=== PATIENT | female | born 1940 | race Caucasian/White ===

== ENCOUNTER → 2020-07-11 14:55 | Outpatient (CLI) | payer MEDICARE, SELFPAY ==
--- NOTE | ~2020-07-11 | MM_ITS ---
EXAMINATION: MM screening jj BI w ruma HISTORY: Screening mammogram TECHNIQUE: Craniocaudal and mediolateral oblique 3-D tomosynthesis images were obtained and synthetic 2-D images were generated. CAD analysis was submitted and interpreted. COMPARISON: 06/01/2019, 05/18/2018 bilateral digital screening mammogram examinations BREAST PARENCHYMAL COMPOSITION: There are scattered areas of fibroglandular density. FINDINGS: There is no evidence of suspicious mass, calcification, or architectural distortion to sugg est malignancy in either breast. There has been no suspicious interval change. IMPRESSION: 1. No mammographic evidence of malignancy. 2. Recommend routine screening mammography in one year. BI-RADS Category 1: Negative Reviewed, dictated and finalized at location A. AL WARDEN
== END ==
PROVIDERS: Visit Provider Family Medicine
DX: Z12.31 Encounter for screening mammogram for malignant neoplasm of breast (principal)
CPT/HCPCS: 77063; 77067

== ENCOUNTER 2020-11-20 10:42 | Outpatient (CLI) | payer MEDICARE, SELFPAY ==
--- NOTE | ~2020-11-20 | XR_ITS ---
EXAMINATION: XR knee RT 3V DATE: 11/20/2020 11:12 INDICATION: Right knee pain. TECHNIQUE: 3 views of right knee were obtained. COMPARISON: Right knee radiographs 02/02/2016 FINDINGS: There is varus angulation at the knee. No fracture. There is severe osteoarthritis of media l compartment, mild osteoarthritis of lateral compartment, and moderate osteoarthritis of patellofemo ral compartment. No knee joint effusion. IMPRESSION: 1. Severe right knee osteoarthritis. Reviewed, dictated and finalized at location A.
== END 2020-11-20 10:43 | disposition home or self-care (01) ==
PROVIDERS: PCP Family Medicine; Visit Provider Family Medicine
DX: M25.561 Pain in right knee (principal); M17.11 Unilateral primary osteoarthritis, right knee
CPT/HCPCS: 73562

== ENCOUNTER → 2021-09-07 13:28 | Outpatient (CLI) | payer MEDICARE, SELFPAY ==
--- NOTE | ~2021-09-07 | MM_ITS ---
EXAMINATION: MM screening [facility] BI w ruma HISTORY: Screening TECHNIQUE: Craniocaudal and mediolateral oblique 3-D tomosynthesis images were obtained and synthetic 2-D images were generated. CAD analysis was submitted and interpreted. COMPARISON: Comparison to multiple prior studies sequentially, with oldest reviewed study dated 07/2018. BREAST PARENCHYMAL COMPOSITION: Breast composed of scattered areas of fibroglandular density FINDINGS: There is no evidence of suspicious mass, calcification, or architectural distortion to sugg est malignancy in either breast. There has been no suspicious interval change. IMPRESSION: 1. No mammographic evidence of malignancy. 2. Recommend routine screening mammography in one year. BI-RADS Category 1: Negative Reviewed, dictated and finalized at location A.
== END ==
PROVIDERS: PCP Family Medicine; Visit Provider Family Medicine
DX: Z12.31 Encounter for screening mammogram for malignant neoplasm of breast (principal)
CPT/HCPCS: 77063; 77067

== ENCOUNTER → 2021-10-02 13:05 | Outpatient (CLI) | payer MEDICARE, SELFPAY ==
--- NOTE | ~2021-10-02 | DEXA_ITS ---
Bone Density Report Name: MURALI MAYFIELD Age: 81 Sex: Female Ethnicity: White Date of : 1940 Indication: osteopenia; parental hip fracture; height loss; postmenopausal Referring Provider: ASTER LUIS Study: Bone densitometry was performed. Exam Date: October 02, 2021 Accession number: [id number] Bone Density: Region BMD T-score Z-score Classification AP Spine (L3, L4) 0.897 -1.9 1.0 Osteopenia Femoral Neck (Right) 0.803 -0.4 1.9 Normal Total Hip (Right) 0.850 -0.8 1.3 Normal World Health Organization criteria for BMD impression classify patients as: Normal (T-score at or above -1.0), Osteopenia (T-score between -1.0 and -2.5), or Osteoporosis (T-score at or below -2.5). 10-year Fracture Risk(1): Major Osteoporotic Fracture 14% Hip Fracture 5.5% Reported Risk Factors: [place] (), Neck BMD=0.803, BMI=37.3, parental fracture (1) FRAX(R) Version 3.08. Fracture probability calculated for an untreated patient. Fracture probability may be lower if the patient has received treatment. Previous Exams: Region Exam Age BMD T-score BMD Change BMD Change Date g/cm2 vs Baseline vs Previous AP Spine(L3, L4) 10/02/2021 81 0.897 -1.9 -0.068 -0.051* 06/01/2019 79 0.948 -1.4 -0.017 0.046* 12/25/2008 68 0.903 -1.8 -0.062 -0.062 12/27/2002 62 0.965 -1.2 Total Hip(Right) 10/02/2021 81 0.850 -0.8 -0.184 0.002 06/01/2019 79 0.849 -0.8 -0.185 -0.104* 12/25/2008 68 0.953 0.1 -0.081 -0.081 12/27/2002 62 1.034 0.8 *Denotes significance at 95% confidence level, LSC for AP Spine = 0.022 g/cm2, LSC for Total Hip = 0.027 g/cm2 Clinical Information Provided by Patient: Parent has had a hip fracture Has used the following medications: Vitamin D, Calcium, MTV Patient maximum height was 62.5 Menopause Age: 52 Drinks caffeinated beverages Onset of menses at age 12 Number of children 2 Impression: The patient has low bone mass, based on the Total Spine T-score. The patient has an estimated ten-year risk of hip fracture of 5.5% and an estimated ten-year risk of major fracture of 14%, based on the WHO FRAX algorithm. The patient has risk factors, including: parental hip fracture. The BMD for the AP Spine(L3, L4) decreased, changing by -0.051 since the last DXA exam. Discussion: BONE DENSITY IS LOW AT ONE OR MORE SKELETAL SITES. THE PATIENT'S BMD AND CLINICAL RISK FACTORS CONTRIBUTE TO THIS PA
== END ==
PROVIDERS: PCP Family Medicine; Visit Provider Family Medicine
DX: Z78.0 Asymptomatic menopausal state (principal); M85.88 Other specified disorders of bone density and structure, other site
CPT/HCPCS: 77080

== ENCOUNTER 2022-01-07 09:14 | Outpatient (CLI) | payer MEDICARE, SELFPAY ==
--- NOTE | ~2022-01-07 | NM_ITS ---
EXAMINATION: NM josr stress w perfusion DATE: 01/07/2022 11:29 INDICATION: Encounter for preprocedural cardiovascular evaluation. TECHNIQUE: Rest images were obtained following intravenous administration of 9.7 mCi Tc99m tetrofosmi n (Myoview). The patient was infused intravenously with Lexiscan (Regadenoson). Then, 31.7 mCi Tc99m tetrofosmin (Myoview) was administered intravenously, and stress images were obtained initially in newell pine position and subsequently in prone position. Data was reconstructed into short axis and horizont al and vertical long axis SPECT images. Gated SPECT images were also obtained. COMPARISON: None. FINDINGS: Likely breast attenuation artifact along portions of the anteroseptal, anterior and anterol ateral wall which normalizes with prone imaging. No definite reversible or fixed perfusion abnormalit y to suggest ischemia or infarction. There is normal left ventricular chamber size, wall motion and e jection fraction. Left ventricular ejection fraction measures >70%. IMPRESSION: 1. Normal myocardial perfusion at rest and during stress. 2. Left ventricular ejection fraction measuring >70%. Reviewed, dictated and finalized at location A.
--- NOTE | 2022-01-07 09:17 | EST_ITS ---
Patient Info Name: Emily Mitchell Age: 81 years : 1940 Gender: Female Ht: 61 in Wt: 195 lbs BSA: 2.00 m2 HR: 58 bpm BP: 136 / 78 mmHg Heart Rhythm: Sinus Rhythm Exam Date: 01/07/2022 10:18 AM Exam Location: [facility] Stress Patient Status: Outpatient Admit Date: 01/07/2022 Staff Ordering Physician: Aidan Duran DO Attending Provider: Aidan Duran DO Exercise Technologist: Miriam Evans CT Exercise Physician: Aidan Duran DO Exam Type: CA stress josr w NM Study Info Indications R07.89 - Other chest pain Z01.810 - Encounter for preprocedural cardiovascular examination A regadenoson stress test was performed. Summary 1. 1. Negative lexiscan stress test for ischemic ST changes by ECG criteria. 2. 2. Stable hemodynamics throughout the test. 3. 3. Nuclear scan to follow and will be reported separately. Please correlate with it. 4. 4. Patient informed of the above results. Protocol: Lexiscan Stress ECG Details Stage: REST Duration (min): 0 min : 53 sec HR (bpm): 57 SBP (mmHg): 136 DBP (mmHg): 78 Stage: REST Duration (min): 10 min : 47 sec HR (bpm): 56 SBP (mmHg): 136 DBP (mmHg): 78 Stage: STAGE 1 Duration (min): 1 min : 0 sec HR (bpm): 75 SBP (mmHg): 155 DBP (mmHg): 81 Stage: RECOVERY Duration (min): 1 min : 0 sec HR (bpm): 89 SBP (mmHg): 155 DBP (mmHg): 81 Stage: RECOVERY Duration (min): 2 min : 0 sec HR (bpm): 82 SBP (mmHg): 155 DBP (mmHg): 81 Stage: RECOVERY Duration (min): 3 min : 0 sec HR (bpm): 77 SBP (mmHg): 155 DBP (mmHg): 81 Stage: RECOVERY Duration (min): 3 min : 38 sec HR (bpm): 75 SBP (mmHg): 141 DBP (mmHg): 76 Rest HR: 56 bpm Peak HR: 92 bpm Rest Sys BP: 136 mmHg Peak Sys BP: 155 mmHg Max Pred HR: 141 bpm % Max Pred HR: 65 % Target HR: 120 bpm Max RPP: 14,260 bpm*mmHg Termination Reason: Completed protocol Cardiac Symptoms: Shortness of breath Total Time: 1 min : 0 sec Rest Bingham BP: 78 mmHg Peak Bingham BP: 81 mmHg Total Dose: 0.4 mg Resting ECG Sinus rhythm. Stress ECG No ST changes. Arrhythmias None. Report Signatures
== END 2022-01-07 09:15 | disposition home or self-care (01) ==
PROVIDERS: PCP Family Medicine; Visit Provider Internal Medicine Cardiovascular Disease
DX: Z01.810 Encounter for preprocedural cardiovascular examination (principal)
CPT/HCPCS: 78452; 93017; A9502; J2785

== ENCOUNTER 2022-01-20 09:16 | Outpatient (CLI) | payer MEDICARE, SELFPAY ==
--- NOTE | 2022-01-20 | ECG_ITS ---
Measurements Intervals Hughes Rate: 60 P: 51 MT: 204 QRS: -20 QRSD: 93 T: 10 QT: 408 QTc: 409 Interpretive Statements SINUS RHYTHM VENTRICULAR PREMATURE COMPLEX BORDERLINE AV CONDUCTION DELAY LOW QRS VOLTAGE IN PRECORDIAL LEADS CONSIDER INFERIOR INFARCT, AGE INDETERMINATE BASELINE WANDER- I, II, AVR, AVL ABNORMAL ECG NO PREVIOUS ECG AVAILABLE FOR COMPARISON Electronically Signed On 01-20-2022 12:40:10 CDT by Aidan Duran D.O.
[2022-01-20 10:08] LABS: Hematocrit 45.8 % (37.0-47.0); Hemoglobin 14.7 g/dL (12.0-15.0)
[2022-01-20 10:18] LABS: Estimated Glomerular Filt Rate > 60; Glucose 97 mg/dL (65-110)
[2022-01-20 10:22] LABS: Hemoglobin A1C 6.2 % (<5.7)
[2022-01-20 10:25] LABS: Urine Cotinine NEGATIVE
== END 2022-01-20 09:17 | disposition home or self-care (01) ==
PROVIDERS: PCP Family Medicine; Visit Provider Orthopaedic Surgery
DX: Z01.818 Encounter for other preprocedural examination (principal); E03.9 Hypothyroidism, unspecified; I11.0 Hypertensive heart disease with heart failure; E78.5 Hyperlipidemia, unspecified; I47.1 Supraventricular tachycardia; G47.33 Obstructive sleep apnea (adult) (pediatric); M17.12 Unilateral primary osteoarthritis, left knee; I49.3 Ventricular premature depolarization; I49.49 Other premature depolarization; Z51.81 Encounter for therapeutic drug level monitoring; Z79.899 Other long term (current) drug therapy
CPT/HCPCS: 80307; 82040; 82565; 82947; 83036; 85014; 85018; 93005

== ENCOUNTER 2022-02-22 11:44 | Outpatient (CLI) | payer MEDICARE, SELFPAY ==
[2022-02-22 14:06] LABS: Basophils Absolute Auto 0.1 K/mm3 (0.0-0.1); Basophils Percent Auto 0.8 % (0.2-1.2); Eosinophils Absolute Auto 0.2 K/mm3 (0-0.3); Hematocrit 45.3 % (37.0-47.0); Hemoglobin 15.2 g/dL (12.0-15.0); Immature Granulocyte Absolute 0.04 K/mm3 (0.00-0.031); Immature Granulocyte Percent A 0.5 % (0-0.5); Lymphocytes Absolute Auto 2.42 K/mm3 (0.9-3.2); Lymphocytes Percent Auto 30.9 % (18.3-44.2); Mean Corpuscular HGB Conc 33.6 g/dl (32-36); Mean Corpuscular Hemoglobin 30.9 pg (26-34); Mean Corpuscular Volume 92.1 fl (80-100); Mean Platelet Volume 9.3 fl (7.4-10.4); Monocytes Absolute Auto 0.7 K/mm3 (0.1-0.6); Monocytes Percent Auto 8.9 % (2.6-8.5); Neutrophils Absolute Auto 4.5 K/mm3 (1.3-6.7); Neutrophils Percent Auto 56.9 % (45.5-73.1); Platelet Count Result 325 k/mm3 (150-375); Red Blood Count 4.92 M/mm3 (4.2-5.4); Red Cell Distribution Width 12.9 % (11.5-14.5); White Blood Count 7.8 K/mm3 (4.5-10.0)
[2022-02-22 14:14] LABS: Anion Gap 11 mmol/L (8-16); Blood Urea Nitrogen 13 mg/dL (7-17); Calcium 9.9 mg/dL (8.4-10.2); Carbon Dioxide 29 mmol/L (22-30); Chloride 98 mmol/L (98-107); Estimated Glomerular Filt Rate > 60; Glucose 102 mg/dL (65-110); Potassium 4.5 mmol/L (3.4-5.0); Sodium 138 mmol/L (137-145)
[2022-02-22 14:32] LABS: Urine Cotinine NEGATIVE
== END 2022-02-22 11:45 | disposition home or self-care (01) ==
LOC: ANHSURGERY 11:50
PROVIDERS: Anesthesiology; PCP Family Medicine; Visit Provider Orthopaedic Surgery
DX: Z01.812 Encounter for preprocedural laboratory examination (principal); M17.11 Unilateral primary osteoarthritis, right knee; Z51.81 Encounter for therapeutic drug level monitoring; Z79.899 Other long term (current) drug therapy
CPT/HCPCS: 36415; 80048; 80307; 85025; 87081

== ENCOUNTER 2022-03-23 01:03 | Day surgery (SDC) | payer MEDICARE, SELFPAY ==
--- NOTE | 2022-02-22 11:52 | PC.NURSE ---
PRE-OP INSTRUCTIONS, PLEASE READ CAREFULLY Report to the Outpatient Waiting Room, entrance under the green pavilion located off [facility], at time _0630_ on date _03/23/22_. OR Time: _0830_. PACK A SMALL OVERNIGHT BAG AND LEAVE IN THE CAR ALONG WITH YOUR WALKER Time changes happen often and if your time is changed the preop area will call you the afternoon before. - You and your visitor will be asked to self-screen and do not enter if you have any COVID symptoms. - We encourage only one visitor and NO visitors under age 16 are allowed at this time. Your visitor will receive communication by the phone number that is given day of service. VISITING HOURS 8AM-8PM - The patient visitor is requested to social distance or may leave the building when not with patient due to restrictions. - A mask is required within the hospital. Patients may have clear liquids (water, carbonated beverages, clear teas, apple juice) until 3 hours prior to surgery (0530 AM) with a maximum of 20 ounces. - No food from midnight until time of surgery Take the following medications with a SIP of water the morning of surgery: _AMLODIPINE, LEVOTHYROXINE, METOPROLOL, TYLENOL IF NEEDED_ Medications to discontinue per ANESTHESIA - _MULTIVITAMIN 3 DAYS PRIOR TO SURGERY, Date to take last dose 03/19/22_ Please no make-up, nail frisian, hairspray, perfume, deodorant, or body powder the day of surgery. No jewelry (including any body piercings) or valuables the day of surgery, leave them at home. Please take a shower or bath the night before, or the morning of, surgery with an antibacterial soap. Wear comfortable, loose fitting clothing. Children are encouraged to wear pajamas. - Jewelry must be removed prior to entering the operating room. Rings and piercings that are not removed may be cut off. - The hospital will not accept responsibility for valuables. - Please leave all valuables, including medications, at home the day of surgery. If you are going home after surgery, a licensed explosives truck driver must drive you home. - NO public transportation without another adult. - We recommend that an adult stay with you for 24 hours following discharge. - We also recommend that you do not drive, make important decision, drink alcoholic beverages, or take any drugs that were not prescribed by your health care provider for at least 24 hours after your discharge time. Follow any additional instructions given to you from your surgeon. TOTAL JOINT CLASS 03/03/22 @ 1000 AM, [facility] If you or anyone in your household have experienced Covid symptoms in the past week, please notify your surgeon or the nurse liaison at the phone number below for possible testing. Telephone instructions given to ___PT and asked if any additional questions and then verbalized understanding. Patient advised to call surgeon office or pre surgery nurse liaison [phone] if any additional questions.
[2022-02-22 12:13] VITALS: BP 142/78; PULSE 72; RESP 18; TEMP 37.2; O2SAT 94; BMI 35.9
[2022-03-23] VITALS (20 sets, daily range): BP systolic 113–154; BP diastolic 61–96; PULSE 64–89; RESP 10–20; TEMP 36.2–37.3; O2SAT 90–97
--- NOTE | ~2022-03-23 | XR_ITS ---
EXAMINATION: XR knee RT 2V DATE: 03/23/2022 10:42 INDICATION: Right knee arthroscopy. Postop. TECHNIQUE: 2 views of right knee were obtained. COMPARISON: Right knee radiographs 02/22/2022 FINDINGS: There is a total right knee arthroplasty without patellar resurfacing in near-anatomic alig nment. There has been resection of patellar osteophytes. No fracture. There is gas in the knee joint and soft tissues, consistent with recent surgery. IMPRESSION: 1. Total right knee arthroplasty in near-anatomic alignment. Reviewed, dictated and finalized at location A. [place] [employer] DEVELOPER
[2022-03-23] MEDS: LACTATED RINGERS 1,000 ML 30 ML IV CONT ×2 (07:15→10:16)
--- NOTE | 2022-03-23 07:30 | WPDHPUPDATE1 ---
History and Physical Update Update Date/Time: 03/23/22 07:30 History and Physical has been reviewed, including an updated exam of the patient. There are NO changes in the patient's condition. Risks, benefits, and alternatives have been discussed and questions answered. Patient agrees to proceed with procedure.
--- NOTE | 2022-03-23 07:51 | WPDANESEPPF ---
Anes - Initial Pre Proc Eval Procedure: Operation Date: 03/23/22 08:30 Proposed Procedures p Right Total Knee Arthroplasty - Pola Soriano MD Date/Time: 03/23/22 07:51 Surgeon: Pola Soriano MD Pre Op Diagnosis: primary oa right knee Patient Data Age: 82 Gender: F Height: 1.56 m Weight: 88.3 kg Last Vital Signs Temp 36.2 C L 03/23/22 07:21 Pulse 64 03/23/22 07:21 Resp 16 03/23/22 07:21 BP 154/77 H 03/23/22 07:21 Pulse Ox 97 03/23/22 07:21 O2 Del Method Room Air 03/23/22 07:21 Allergies Allergy/AdvReac Type Severity Reaction Status Date / Time isosorbide Allergy Unknown CLAUSTROPHOBIC Verified 03/23/22 06:51 FEELING Home Medications Medication Instructions Recorded Confirmed Type calcium carbonate 500 mg calcium 500 mg PO DAILY #30 tabs 03/19/19 03/23/22 Rx (1,250 mg) tablet multivitamin (Daily Multi-Vitamin 1 tablet PO DAILY 03/18/21 03/23/22 History tablet) magnesium oxide 400 mg (241.3 mg See Rx Instructions .Route 04/22/21 03/23/22 Rx magnesium) tablet .COMPLEX #30 tabs rosuvastatin 5 mg tablet See Rx Instructions .Route 07/16/21 03/23/22 Rx .COMPLEX #90 tabs acetaminophen 650 mg 500 mg PO Q8H PRN PAIN 10/22/21 03/23/22 History tablet,extended release valsartan 160 See Rx Instructions .Route 12/28/21 03/23/22 Rx mg-hydrochlorothiazide 12.5 mg .COMPLEX #30 tabs tablet potassium chloride 10 mEq See Rx Instructions .Route 01/25/22 03/23/22 Rx capsule,extended release .COMPLEX #90 caps amlodipine 10 mg tablet See Rx Instructions .Route 01/26/22 03/23/22 Rx .COMPLEX #90 tabs omeprazole 20 mg capsule,delayed See Rx Instructions .Route 02/11/22 03/23/22 Rx release .COMPLEX #100 caps ascorbic acid (vitamin C) 500 mg 500 mg PO DAILY 02/22/22 03/23/22 History tablet (Vitamin C) levothyroxine 100 mcg tablet See Rx Instructions .Route 03/08/22 03/23/22 Rx .COMPLEX #90 tabs metoprolol tartrate 50 mg tablet 50 mg PO BID #180 tabs 03/16/22 03/23/22 Rx Patient hx anesthesia problems: none Family hx anesthesia problems: none Results Review: All pre-operative results and documents have been reviewed as part of the pre-operative evaluation. [facility] Past Medical History Medical History BMI 36.0-36.9,adult Degenerative joint disease involving multiple joints Essential hypertension Hypothyroidism Mixed hyperlipidemia NILAM on CPAP Surgical History Surgical History History of hip replacement (~2012) Family History Family History Mother Hypertension Family history of Alzheimer's disease Father Carcinoma of colon, Onset Age: 75 Family history of cardiovascular disease Social History Social History Social History: Smoking status: Never smoker Second hand tobacco smoke exposure: No Additional smoking assessment comments: PT DENIES ALL FORMS OF TOBACCO USE Alcohol intake: never Substance use: never Substance use type: does not use Living arrangements: with family Gender identity (if verbalized by the patient): Female Sexual Orientation (if Verbalized by the Patient): Straight or Heterosexual Spiritual care concerns: No Anes - Eval Final PreProcedure Day of Procedure 03/23/22 07:51 Patient weight: obese Heart: regular rate and rhythm Lungs: clear to auscultation Airway: Mallampati scale class II Neurological: alert and oriented Last oral intake: >/= 8 hours ASA classification: III Emergent: no Anesthetic plan: proceed Anesthesia type and monitoring: general LMA and standard monitoring Results Review: All pre-operative results and documents have been reviewed as part of the pre-operative evaluation. Informed Consent: The patient's anesthetic plan and its
[2022-03-23] MEDS: TRANEXAMIC ACID 1,000MG/ISO100 1,000 MG/100 ML BAG 200 MG IVPB (08:09)
[2022-03-23] MEDS: ACETAMINOPHEN 500 MG TABLET 1000 MG PO (08:09)
--- NOTE | 2022-03-23 08:10 | WPDANESPNB ---
Anes - Peripheral Nerve Block Date/Time: 03/23/22 08:10 I have discussed with the patient/family/POA the placement of a peripheral nerve block for post-operative pain management, including associated risks, benefits, complications, and side effects. Alternative methods of post-operative analgesia were detailed. Questions were solicited and answers provided to the satisfaction of the patient/family/POA. Time-Out: A pre-procedural Time-Out was completed immediately before starting the procedure and confirmed: Patient Identification, Site, Procedure, Patient Position and the Availability of Requisite Equipment. Clinical Indications: Acute post-operative pain management requested by the operative surgeon. Nerve Block Insertion Note Anes-nerve block: adductor canal right Patient position: supine Skin prep: chlorhexidine Needle: 22 gauge, stimulating, insulated echogenic needle. Needle length: 80 mm Technique: ultrasound Technique comment: mid 1mg [id number] Injectate: bupivacaine 0.5% with epi 5 mcg/ml (30ml no epi) and dexamethasone (mg) (4) Observations: tolerated well Complications: none Procedure start time:: 799 Procedure end time:: 806
[2022-03-23] MEDS: ceFAZolin 2 GM/D5W 50 ML 2 GM/50 ML BAG IVPB ×3 (08:27→23:14)
[2022-03-23] MEDS: GENTAMICIN BONE CEMENT REFOBACIN 1 EACH TOPICAL (09:22)
--- NOTE | 2022-03-23 10:31 | W.PM.PROC2 ---
Procedure Note - Detailed Date of Procedure 03/23/22 Pre-op Diagnosis primary oa right knee Post-op Diagnosis Same Procedure Performed Total knee arthroplasty, right. Surgeon Pola Soriano MD Emergency Specialist Aurelia Chew PA-C Anesthesia General and Regional (subsartorial block) Findings Satisfactory bone quality. Standard bone resections. Good PCL function. Description of Procedure The patient was given a nerve block preoperatively, and then brought to the operating room. A general anesthetic was administered. The leg was prepped and draped in the usual sterile fashion. The limb was elevated and the tourniquet inflated to 300 mmHg. A longitudinal incision was created along the medial border of the patella and patellar tendon, and a trivector approach to the knee was performed. A mild medial release was taken. The knee was then flexed. The osteophytes were carefully removed. The intramedullary guide was placed in the femoral canal. The distal femoral resection was then taken with the oscillating saw. The collateral ligaments were carefully protected. The tibia was carefully exposed. The jig was applied, and the proximal tibia was resected according to preoperative plan. The knee was balanced in extension. Appropriate releases were taken where needed. The anterior cruciate ligament and meniscal remnants were removed. The posterior cruciate ligament was preserved. The patella was measured. Patellar resection was carried out with the oscillating saw. The lug holes drilled. The femur was sized and rotation assessed using a combination of gap balancing, posterior referencing, and the AP axis. The 4 in 1 cutting block was used to finish the femoral cuts after equal gaps were assured. The lug holes were drilled. The osteophytes were carefully removed from the back of the knee. The knee was copiously irrigated with antibiotic solution periodically throughout the procedure. The meniscal remnants were removed. The spacer block was used to confirm equal flexion and extension gaps. Further releases were performed as needed. The tibia was sized and broached. The bony surfaces were prepared for cementing with pulsatile lavage. The real tibial component was cemented into position followed by press fitting the femoral component. Excess cement was carefully removed. The patella component was press-fit. Patellar tracking was carefully assessed. No additional releases were required. The wound was closed with #1 Vycril suture, #2 Quill suture, 0-Quill suture, and 2-0 Quill suture followed by Steri-Strips. A sterile bulky dressing was applied. Meticulous hemostasis was maintained throughout the procedure. There were no complications. The patient was extubated and brought to the recovery room in stable condition after the application of sterile dressing with Boogie bandage. Implants Sb Triathlon knee system, low profile cemented tibia size 3, press fit cruciate retaining femoral component size 3 ,and an 11 mm cruciate retaining polyethylene insert. Estimated Blood Loss 50 Tourniquet Time 48 Drains No Pathology None sent Complications No immediate complications Condition Stable Disposition PACU [facility] Billing Surgery - Charge Forward: Surgery Billing
[2022-03-23] MEDS: fentaNYL CITRATE INJ (*CRX) 100 MCG/2 ML VIAL 25 MCG IV PUSH ×4 (10:39→11:45)
--- NOTE | 2022-03-23 12:55 | ADMGEN ---
This patient, Emily Mitchell, was admitted to 2 Medical Room 260-01. Patient/family oriented to hospital policies and general routines including ID bracelet, bed and alarms, visiting hours, pain management, procedures, bathroom and other care routines, personal items, smoking policy, room service/diet, and visiting hours. Information on how to activate the Rapid Response Team has been discussed. Patient/Family are encouraged to report perceived risks to care and to ask questions if they do not understand what they are told or what they should do.
[2022-03-23] MEDS: SODIUM CHLORIDE 0.9% IV 1,000 ML 125 ML IV CONT (13:30)
[2022-03-23] MEDS: ONDANSETRON INJ 4 MG/2 ML VIAL IV PUSH (13:41)
[2022-03-23] MEDS: ASPIRIN 81 MG ENTERIC TABLET PO (16:49)
[2022-03-23] MEDS: SENNA/DOCUSATE SODIUM TABLET 2 TAB PO (16:49)
[2022-03-23] MEDS: MELOXICAM 7.5 MG TABLET PO (16:50)
[2022-03-23] MEDS: METOPROLOL TARTRATE 50 MG TAB PO (21:02)
[2022-03-24 03:02] VITALS: PULSE 82; O2SAT 94
[2022-03-24 03:56] VITALS: BP 121/68; PULSE 65; RESP 18; TEMP 36.6; O2SAT 91
[2022-03-24 06:00] LABS: Anion Gap 13 mmol/L (8-16); Blood Urea Nitrogen 10 mg/dL (7-17); Calcium 8.5 mg/dL (8.4-10.2); Carbon Dioxide 24 mmol/L (22-30); Chloride 100 mmol/L (98-107); Estimated CRCL calculation 76 ml/min; Estimated Glomerular Filt Rate > 60; Glucose 122 mg/dL (65-110); Potassium 3.5 mmol/L (3.4-5.0); Sodium 137 mmol/L (137-145)
[2022-03-24 06:08] LABS: Basophils Percent Auto 0.1 % (0.2-1.2); Hematocrit 38.2 % (37.0-47.0); Hemoglobin 12.5 g/dL (12.0-15.0); Immature Granulocyte Absolute 0.09 K/mm3 (0.00-0.031); Immature Granulocyte Percent A 0.6 % (0-0.5); Lymphocytes Absolute Auto 1.28 K/mm3 (0.9-3.2); Lymphocytes Percent Auto 9.1 % (18.3-44.2); Mean Corpuscular HGB Conc 32.7 g/dl (32-36); Mean Corpuscular Volume 94.8 fl (80-100); Mean Platelet Volume 9.3 fl (7.4-10.4); Monocytes Absolute Auto 1.1 K/mm3 (0.1-0.6); Monocytes Percent Auto 7.8 % (2.6-8.5); Neutrophils Absolute Auto 11.6 K/mm3 (1.3-6.7); Neutrophils Percent Auto 82.4 % (45.5-73.1); Platelet Count Result 291 k/mm3 (150-375); Red Blood Count 4.03 M/mm3 (4.2-5.4); Red Cell Distribution Width 13.2 % (11.5-14.5); White Blood Count 14.1 K/mm3 (4.5-10.0)
[2022-03-24] MEDS: LEVOTHYROXINE SODIUM 100 MCG TABLET PO (06:15)
[2022-03-24 08:15] VITALS: O2SAT 90
[2022-03-24] MEDS: polyethylene glycoL 3350 17 GM POWD.PACK PO (08:39)
[2022-03-24] MEDS: ceFAZolin 2 GM/D5W 50 ML 2 GM/50 ML BAG IVPB (08:39)
[2022-03-24] MEDS: VALSARTAN 160 MG TABLET PO (08:40)
[2022-03-24] MEDS: amLODIPine BESYLATE 5 MG TABLET 10 MG PO (08:40)
[2022-03-24 08:41] VITALS: PULSE 72
[2022-03-24] MEDS: predniSONE 5 MG TABLET PO (08:41)
[2022-03-24] MEDS: METOPROLOL TARTRATE 50 MG TAB PO (08:41)
[2022-03-24] MEDS: PANTOPRAZOLE 40 MG TABLET PO (08:41)
[2022-03-24] MEDS: MELOXICAM 7.5 MG TABLET PO (08:43)
[2022-03-24] MEDS: hydroCHLOROthiazide 12.5 MG CAPSULE PO (08:43)
[2022-03-24] MEDS: oxyCODONE HCL (*CRX) 5 MG TAB IR PO (08:44)
[2022-03-24] MEDS: ROSUVASTATIN 5 MG TABLET PO (08:45)
[2022-03-24] MEDS: SENNA/DOCUSATE SODIUM TABLET 2 TAB PO (08:50)
[2022-03-24] MEDS: ASPIRIN 81 MG ENTERIC TABLET PO (09:26)
[2022-03-24 10:45] VITALS: BP 132/61; PULSE 68; RESP 16; TEMP 36.3; O2SAT 95
--- NOTE | 2022-03-24 11:55 | PM.DS ---
DS: Admitting Diagnosis Discharge Date 03/24/22 Admitting Diagnosis OA knee Right DS: Discharge Diagnosis Discharge Diagnosis (1) Status post total right knee replacement: Code(s): Z96.651 - Presence of right artificial knee joint Status: Acute Assessment and Plan: Postop day 1: Left total knee arthroplasty. Patient tolerated procedure well. No complications. Pain manageable with pain medication. No numbness or tingling. We had a lengthy discussion regarding postoperative wound care, limitations, expectations, and exercises. Patient shows good understanding. He has had initial physical therapy and is tolerating it well. DVT prophylaxis: 81 mg baby aspirin b.i.d. for 14 days. Pain medication: Percocet. Meloxicam. Prednisone. Patient has followup appointment with Dr. Soriano in 3 weeks. DS: Summary Hospital Course Reason for hospitalization: Total knee arthroplasty Hospital Course: Patient tolerated procedure well. Has had initial PT/OT. No complications. Pain well managed. Status at Discharge Functional status at discharge: uses cane/walker Overall status at discharge: patient is progressing back to baseline Time Spent with Patient Time attestation: Total time spent providing and/or coordinating discharge services: Exam Narrative: Overweight 82 y/o female. Resting comfortably in chair. No acute distress. A&O x3. Wearing compression socks bilaterally. Dressing intact with no drainage. Moderate swelling. Small area of ecchymosis. No erythema. No hematoma. Good early range of motion. Calf nontender. Neurologic status intact. No varicosities. Distal pulses palpable. DS: Data Data Completed and Pending Labs on day of discharge: Labs from last 24 hours 03/24/22 03/24/22 05:06 05:06 WBC 14.1 H RBC 4.03 L Hgb 12.5 Hct 38.2 MCV 94.8 MCH 31.0 MCHC 32.7 RDW 13.2 Plt Count 291 MPV 9.3 Immature Gran % (Auto) 0.6 H Neut % (Auto) 82.4 H Lymph % (Auto) 9.1 L [place] % (Auto) 7.8 Eos % (Auto) 0.0 Baso % (Auto) 0.1 L Lymph # (Auto) 1.28 [place] # (Auto) 1.1 H Eos # (Auto) 0.0 Baso # (Auto) 0.0 Abs Immat Gran (auto) 0.09 H Absolute Neuts (auto) 11.6 H Absolute Nucleated RBC 0.0 Nucleated RBC % 0.0 Sodium 137 Potassium 3.5 Chloride 100 Carbon Dioxide 24 Anion Gap 13 BUN 10 Creatinine 0.50 L Estim Creat Clear Calc 76 Estimated GFR > 60 Glucose 122 H Calcium 8.5 Discharge Plan Discharge Patient Disposition: Home, Self-Care Discharge Instructions: See green instruction sheets Stand Alone Forms: General Discharge Instructions Follow-up/Referrals: Aurelia Chew PA [Physician Biological Technical Officer] - Discharge Medications: New meloxicam 15 mg tablet 15 mg PO DAILY Qty: 30 0RF Rx Instructions: Cut in half. Take 1/2 in morning and 1/2 at night. Take with food. Stop if stomach upset. prednisone 5 mg tablet 5 mg PO DAILY 21 Days Qty: 21 0RF aspirin 81 mg tablet,delayed release (DR/EC) 81 mg PO BID 14 Days Qty: 28 0RF oxycodone-acetaminophen 5-325 mg tablet 1 - 2 tablet PO Q4-6H MDD 6 PRN (Reason: pain) Qty: 30 0RF Continued multivitamin [Daily Multi-Vitamin] Tablet 1 tablet PO DAILY Label Comments: AFTERNOON acetaminophen 650 mg tablet extended release 500 mg PO Q8H PRN (Reason: PAIN) Rx Instructions: Pt took 350 mg this AM calcium carbonate 500 mg calcium (1,250 mg) tablet 500 mg PO DAILY Qty: 30 0RF Label Comments: AFTERNOON rosuvastatin 5 mg tablet See Rx Instructions .ROUTE .COMPLEX Qty: 90 2RF Dose Instruction: TAKE 1 TABLET BY MOUTH DAILY Rx Instructions: TAKE 1 TABLET BY MOUTH DAILY EVERY OTHER DAY @ HS ascorbic acid (vitamin C) [Vitamin C] 500 mg Tablet 500 mg PO DAILY Label Comments: AFTERNOON magnesium oxide 400 mg (241.3 mg magnesium) tablet See Rx Instructions .ROU
--- NOTE | 2022-03-24 12:03 | P.PNAN_ITS ---
Anes - Prog Note Post-Op Date/Time: 03/24/22 12:03 Cardiovascular status: normal Respiratory status: normal Airway patency: baseline Mental status: baseline Post-Op hydration status: normal Vital Signs: Last Vital Signs Temp 36.6 C 03/24/22 03:56 Pulse 72 03/24/22 08:41 Resp 18 03/24/22 03:56 BP 121/68 03/24/22 03:56 Pulse Ox 90 03/24/22 08:15 O2 Del Method Room Air 03/24/22 08:45 O2 Flow Rate 1 03/24/22 08:15 Pain Score (VAS): 0 at rest; 7 after therapy I/O: Intake & Output 03/23/22 03/24/22 03/24/22 23:59 07:59 15:59 Intake Total 540 Output Total 600 100 Balance -60 -100 Laboratory Tests 03/24/22 05:06 03/24/22 05:06 03/24/22 03/24/22 05:06 05:06 WBC 14.1 H RBC 4.03 L Hgb 12.5 Hct 38.2 MCV 94.8 MCH 31.0 MCHC 32.7 RDW 13.2 Plt Count 291 MPV 9.3 Immature Gran % (Auto) 0.6 H Neut % (Auto) 82.4 H Lymph % (Auto) 9.1 L [place] % (Auto) 7.8 Eos % (Auto) 0.0 Baso % (Auto) 0.1 L Lymph # (Auto) 1.28 [place] # (Auto) 1.1 H Eos # (Auto) 0.0 Baso # (Auto) 0.0 Abs Immat Gran (auto) 0.09 H Absolute Neuts (auto) 11.6 H Absolute Nucleated RBC 0.0 Nucleated RBC % 0.0 Sodium 137 Potassium 3.5 Chloride 100 Carbon Dioxide 24 Anion Gap 13 BUN 10 Creatinine 0.50 L Estim Creat Clear Calc 76 Estimated GFR > 60 Glucose 122 H Calcium 8.5 Post-procedural complaints: none Patient Feedback: Patient satisfied with anesthetic care. Patient loved her peripheral nerve block! She had PT this morning and was in pain during my post op round. She stated her pain was very well controlled prior to PT now it was at about a 7/10. Receiving PO pain meds.
[2022-03-24] MEDS: oxyCODONE HCL (*CRX) 5 MG TAB IR 10 MG PO (12:07)
== END 2022-03-24 12:55 | disposition home or self-care (01) ==
LOC: ANHSURGERY 06:33 → ANH2MED 12:26
PROVIDERS: Physician Assistant Surgical; PCP Family Medicine; Visit Provider Orthopaedic Surgery
PROC: (CPT 27447; principal; 2022-03-23 08:30)
DX: M17.11 Unilateral primary osteoarthritis, right knee (principal); G89.18 Other acute postprocedural pain; I10 Essential (primary) hypertension; E78.2 Mixed hyperlipidemia; G47.33 Obstructive sleep apnea (adult) (pediatric); E03.9 Hypothyroidism, unspecified; E66.9 Obesity, unspecified; Z68.36 Body mass index [BMI] 36.0-36.9, adult
CPT/HCPCS: 27447; 64447; 36415; 73560; 80048; 80307; 85025; 86850; 86900; 86901; 87081; 97110; 97116; 97161; 97165; 97530; 97535; A9270; C1713; C1776; J0131; J0171; J0690; J1100; J1170; J1885; J2250; J2270; J2405; J2704; J2795; J3010; J7030; J7120; J7512

== ENCOUNTER 2022-06-23 10:43 | Outpatient (CLI) | payer MEDICARE, SELFPAY ==
[2022-06-23 11:09] LABS: Hematocrit 43.9 % (37.0-47.0); Hemoglobin 14.2 g/dL (12.0-15.0)
[2022-06-23 11:18] LABS: Estimated Glomerular Filt Rate > 60; Glucose 99 mg/dL (65-110)
== END 2022-06-23 10:44 | disposition home or self-care (01) ==
PROVIDERS: PCP Family Medicine; Visit Provider Orthopaedic Surgery
DX: D50.9 Iron deficiency anemia, unspecified (principal); M17.12 Unilateral primary osteoarthritis, left knee; I10 Essential (primary) hypertension; E78.5 Hyperlipidemia, unspecified; E03.9 Hypothyroidism, unspecified
CPT/HCPCS: 36415; 82040; 82565; 82947; 85014; 85018

== ENCOUNTER 2022-06-30 19:30 | Observation (INO) | payer MEDICARE, SELFPAY ==
--- NOTE | ~2022-06-30 | XR_ITS ---
EXAMINATION: XR chest 2V Exam Date/Time: 06/30/2022 20:15 FLOOR FRAMER HISTORY: IRREGULAR HEART RATE Comparison: 01/23/2019. RESULT: Lines, tubes, and devices: None. Lungs and pleura: Bibasilar scar/atelectasis. Cardiomediastinal silhouette: Stable. Other: No acute osseous or upper abdominal finding. IMPRESSION: No acute cardiopulmonary process. Reviewed, dictated and finalized at location [facility]
--- NOTE | 2022-06-30 19:32 | ECG_ITS ---
Measurements Intervals [place] Rate: 125 P: 217 [place]: 190 QRS: 0 QRSD: 132 T: -2 QT: 307 QTc: 443 Interpretive Statements PROBABLE SUPRAVENTRICULAR TACHYCARDIA ALTHOUGH SINUS TACHYCARDIA IS ALSO POSSIBLE; CLINICAL CORRELATION NEEDED. COMPARED TO ECG 01/20/2022 10:24:52 TACHYCARDIA NOW PRESENT Electronically Signed On 06-30-2022 19:53:50 MONOTYPE MECHANIC by Laurie Braden M.D.
[2022-06-30 19:43] VITALS: BP 147/91; PULSE 87; RESP 17; TEMP 36.9; O2SAT 100
[2022-06-30 19:53] LABS: Basophils Absolute Auto 0.1 K/mm3 (0.0-0.1); Basophils Percent Auto 0.6 % (0.2-1.2); Eosinophils Absolute Auto 0.1 K/mm3 (0-0.3); Eosinophils Percent Auto 1.6 % (0-4.4); Hematocrit 45.8 % (37.0-47.0); Immature Granulocyte Absolute 0.04 K/mm3 (0.00-0.031); Immature Granulocyte Percent A 0.4 % (0-0.5); Lymphocytes Absolute Auto 2.14 K/mm3 (0.9-3.2); Lymphocytes Percent Auto 23.9 % (18.3-44.2); Mean Corpuscular HGB Conc 32.8 g/dl (32-36); Mean Corpuscular Hemoglobin 30.5 pg (26-34); Mean Corpuscular Volume 93.3 fl (80-100); Mean Platelet Volume 8.9 fl (7.4-10.4); Monocytes Absolute Auto 0.8 K/mm3 (0.1-0.6); Monocytes Percent Auto 8.5 % (2.6-8.5); Neutrophils Absolute Auto 5.8 K/mm3 (1.3-6.7); Platelet Count Result 319 k/mm3 (150-375); Red Blood Count 4.91 M/mm3 (4.2-5.4); Red Cell Distribution Width 13.3 % (11.5-14.5)
[2022-06-30 20:03] LABS: INR 1.1; Prothrombin Time 13.5 Seconds (11.1-14.7)
[2022-06-30 20:04] LABS: Partial Thromboplastin Time 27.6 SECONDS (22.3-36.8)
[2022-06-30 20:05] LABS: Alanine Aminotransferase 21 U/L (6-35); Albumin Level 4.3 g/dL (3.5-5.1); Alkaline Phosphatase 68 U/L (38-126); Anion Gap 8 mmol/L (8-16); Aspartate Amino Transferase 27 U/L (14-36); Bilirubin,Total 0.6 mg/dL (0.2-1.3); Blood Urea Nitrogen 17 mg/dL (7-17); Calcium 9.1 mg/dL (8.4-10.2); Carbon Dioxide 26 mmol/L (22-30); Chloride 103 mmol/L (98-107); Estimated CRCL calculation 66 ml/min; Estimated Glomerular Filt Rate > 60; Glucose 158 mg/dL (65-110); Lipase 44 U/L (23-300); Sodium 137 mmol/L (137-145)
[2022-06-30 20:17] LABS: Troponin I < 0.012 ng/mL (0.000-0.034)
[2022-07-01] VITALS (31 sets, daily range): BP systolic 125–149; BP diastolic 62–84; PULSE 54–77; RESP 11–27; TEMP 36.5–36.6; O2SAT 92–99; BMI 35.2
--- NOTE | 2022-07-01 | ECHO_ITS ---
Patient Info Name: Emily Mitchell Age: 82 years : 1940 Gender: Female Ht: 62 in Wt: 192 lbs BSA: 1.99 m2 HR: 59 bpm BP: 149 / 83 mmHg Technical Quality: Good Exam Date: 07/01/2022 11:11 AM Exam Location: [facility] Pulmonary Exam Room: ICU5 Patient Status: Outpatient Admit Date: 07/01/2022 Staff Ordering Physician: Aidan Duran DO Veterinary Surgeon: Ama Murillo RCS Attending Provider: Raymond Hood M.A., MD Referring Physician: Roger GUADARRAMA; Exam Type: CA echo doppler color flow Study Info Indications - CHEST PAIN ELEVATED TROPONINS Complete two-dimensional, color flow and Doppler transthoracic echocardiogram is performed. Summary 1. Complete two-dimensional, color flow and Doppler transthoracic echocardiogram is performed. 2. Left ventricular chamber dimension is normal. 3. Left ventricular systolic function is normal, estimated at 65-70%. 4. The left ventricular diastolic function is grade II diastolic dysfunction. 5. E/e' 8 is minimally elevated. 6. Global longitudinal strain is normal at -23.6%. 7. Left atrial chamber dimension is moderately enlarged. 8. Right atrial chamber dimension is mildly enlarged. 9. There is mild aortic valve sclerosis. 10. There is mild aortic valve regurgitation. 11. There is moderate mitral valve regurgitation. 12. There is trace tricuspid valve regurgitation. 13. No pulmonary hypertension, estimated pulmonary arterial systolic pressure is 26 mmHg. 14. The prox ascending aorta size is borderline dilated at 4.0 cm. Left Ventricle E/e' 8 is minimally elevated. Global longitudinal strain is normal at -23.6%. Left ventricular chamber dimension is normal. Left ventricular systolic function is normal, estimated at 65-70%. The left ventricular diastolic function is grade II diastolic dysfunction. Right Ventricle Right ventricular chamber dimension is normal. Right ventricular systolic function is normal. Left Atria Left atrial chamber dimension is moderately enlarged. Right Atria Right atrial chamber dimension is mildly enlarged. Aortic Valve The aortic valve is trileaflet. There is mild aortic valve sclerosis. There is no aortic valve stenosis. There is mild aortic valve regurgitation. Pulmonic Valve There is no pulmonic regurgitation. Mitral Valve There is no mitral valve stenosis. There is moderate mitral valve regurgitation. Tricuspid Valve There is trace tricuspid valve regurgitation. No pulmonary hypertension, estimated pulmonary arterial systolic pressure is 26 mmHg. Pericardium/Pleural There is no pericardial effusion. Inferior Vena Cava Normal inferior vena cava with >50% collapse upon inspiration consistent with normal right atrial pressure, 5 mmHg. Aorta The aortic root size at the sinus of Valsalva is normal. The prox ascending aorta size is borderline dilated at 4.0 cm. Left Ventricular Outflow Tract Name Value Normal LVOT 2D LVOT Diameter 2.0 cm LVOT Doppler LVOT Peak Gradient 4 mmHg LVOT Mean Gradient 2 mmHg LVOT VTI 2
[2022-07-01 00:52] LABS: Troponin I 0.035 ng/mL (0.000-0.034)
--- NOTE | 2022-07-01 00:52 | ED.GENADULT ---
HPI - General Adult General Chief complaint: Recheck/Abnormal Lab/Rx Stated complaint: IRREGULAR HEART RATE AND BP Time Seen by Provider: 07/01/22 00:17 History of Present Illness HPI narrative: is an 82-year-old female presenting ED with a chief complaint of tachycardia and chest pressure. Patient was doing water aerobics earlier today. She started to feel substernal chest pressure, that is nonradiating, 1/10 intensity constant. She never experienced pain like that before even when performing exercise. There are no exacerbating. Patient's chest pain stops when she stops doing aerobics. After that she did become tachycardic. She said that her heart rate was 120-140. She took a blood pressure at home at that time and it was 92/60. She took her home dose of metoprolol early. 1 hour later her symptoms have resolved. Patient's scene shifter is Dr. Duran. She does take metoprolol for tachycardia. Related Data Home Medications Medication Instructions Recorded Confirmed multivitamin (Daily Multi-Vitamin 1 tablet PO DAILY 03/18/21 06/23/22 tablet) acetaminophen 650 mg 500 mg PO Q8H PRN PAIN 10/22/21 06/23/22 tablet,extended release ascorbic acid (vitamin C) 500 mg 500 mg PO DAILY 02/22/22 06/23/22 tablet (Vitamin C) aspirin 81 mg tablet,delayed 81 mg PO DAILY 04/22/22 06/23/22 release Allergies Allergy/AdvReac Type Severity Reaction Status Date / Time isosorbide Allergy Unknown CLAUSTROPHOBIC Verified 06/23/22 10:08 FEELING PMFSH Past Medical History Medical History BMI 36.0-36.9,adult Degenerative joint disease involving multiple joints Essential hypertension Hypothyroidism Mixed hyperlipidemia NILAM on CPAP Surgical History Surgical History History of hip replacement (~2012) Family History Family History Mother Hypertension Family history of Alzheimer's disease Father Carcinoma of colon, Onset Age: 75 Family history of cardiovascular disease Social History Social History Social History: Smoking status: Never smoker Second hand tobacco smoke exposure: Yes Additional smoking assessment comments: PT DENIES ALL FORMS OF TOBACCO USE Alcohol intake: never Substance use: never Substance use type: does not use Lack of Transportation: No Lack of Food: Never True Current Housing: I Have Housing Concerned About Future Housing: No Difficulty Paying Gas/Electric Bills: No Difficulty Paying for Meds: No Currently Unemployed: No Education: Bachelor's Degree Difficulty w/ Childcare or Family Care: No Living arrangements: with family Occupation/Education: retired Gender identity (if verbalized by the patient): Female Sexual Orientation (if Verbalized by the Patient): Straight or Heterosexual Spiritual care concerns: No Exam Narrative: APPEARANCE: No apparent distress. Head: atraumatic. EYES: EOMI, NOSE: Atraumatic NECK: Trachea midline RESPIRATORY: No increased rate of breathing , clear to auscultation CARDIOVASCULAR: RRR, not tachycardic, no peripheral edema ABDOMINAL: Non-distended, nontender no guarding or rebound MUSCULOSKELETAl: No obvious deformities NEURO: Alert. Moving 4/4 extremities SKIN:: Warm, dry. Normal color PSYCHIATRIC: Normal affect Course Vital Signs Vital signs: Vital Signs Temperature 98.4 F 06/30/22 19:43 Pulse Rate 87 06/30/22 19:43 Respiratory Rate 17 06/30/22 19:43 Blood Pressure 147/91 H 06/30/22 19:43 Pulse Oximetry 100 06/30/22 19:43 Oxygen Delivery Room Air 06/30/22 19:43 Temperature 98.4 F 06/30/22 19:43 Pulse Rate 64 07/01/22 00:24 Respiratory Rate 16 07/01/22 00:24 Blood Pressure 149/83 H 07/01/22 00:24 Pulse Oximetry 99 07/01/22 00:24 Oxygen Deliver
--- NOTE | 2022-07-01 00:56 | ECG_ITS ---
Measurements Intervals [place] Rate: 64 P: 53 [place]: 204 QRS: 7 QRSD: 94 T: 39 QT: 442 QTc: 456 Interpretive Statements SINUS RHYTHM SEPTAL MYOCARDIAL INFARCTION , PROBABLY OLD [40+ ms Q WAVE IN V1/V2] COMPARED TO ECG 06/30/2022 19:38:22 SINUS RHYTHM NOW PRESENT MYOCARDIAL INFARCT FINDING NOW PRESENT Electronically Signed On 07-01-2022 14:52:48 ELECTROTHERAPIST by Swapna Sofia M.D.
[2022-07-01 03:53] LABS: Troponin I 0.032 ng/mL (0.000-0.034)
--- NOTE | 2022-07-01 04:47 | PM.IMHP ---
H&P: HPI History of Present Illness Date/Time: 07/01/22 04:47 Chief Complaint: 82 years old female with past medical history of hyperlipidemia hypertension presented to the hospital with chest pain intermittent pressure-like no radiation aggravated with activity improved with rest patient denies shortness of breath patient Luis her heart rate was around 120 as she took metoprolol which she normally took for tachycardia her heart rate has improved and the chest pain has resolved patient came to the ER for further evaluation and treatment troponin was mildly elevated Review of Systems Review of Systems: Twelve system review was negative except above [facility] Past Medical History Medical History BMI 36.0-36.9,adult Degenerative joint disease involving multiple joints Essential hypertension Hypothyroidism Mixed hyperlipidemia NILAM on CPAP Surgical History Surgical History History of hip replacement (~2012) Family History Family History Mother Hypertension Family history of Alzheimer's disease Father Carcinoma of colon, Onset Age: 75 Family history of cardiovascular disease Social History Social History Social History: Smoking status: Never smoker Second hand tobacco smoke exposure: Yes Additional smoking assessment comments: PT DENIES ALL FORMS OF TOBACCO USE Alcohol intake: never Substance use: never Substance use type: does not use Lack of Transportation: No Lack of Food: Never True Current Housing: I Have Housing Concerned About Future Housing: Decline to Answer Difficulty Paying Gas/Electric Bills: Decline to Answer Difficulty Paying for Meds: Decline to Answer Currently Unemployed: Decline to Answer Education: Decline to Answer Difficulty w/ Childcare or Family Care: Decline to Answer Living arrangements: with family Occupation/Education: retired Gender identity (if verbalized by the patient): Female Sexual Orientation (if Verbalized by the Patient): Straight or Heterosexual Spiritual care concerns: No Meds Home Medications and Allergies Home Medications Medication Instructions Recorded Confirmed Type calcium carbonate 500 mg calcium 500 mg PO DAILY #30 tabs 03/19/19 07/08/22 Rx (1,250 mg) tablet multivitamin (Daily Multi-Vitamin 1 tablet PO DAILY 03/18/21 07/08/22 History tablet) acetaminophen 650 mg 500 mg PO Q8H PRN PAIN 10/22/21 07/08/22 History tablet,extended release ascorbic acid (vitamin C) 500 mg 500 mg PO DAILY 02/22/22 07/08/22 History tablet (Vitamin C) amlodipine 10 mg tablet 10 mg PO DAILY 07/01/22 07/08/22 History aspirin 81 mg tablet,delayed 81 mg PO QAM #30 tabs 07/01/22 07/08/22 Rx release magnesium oxide 400 mg (241.3 mg 400 mg PO 3XW 07/01/22 07/08/22 History magnesium) tablet metoprolol tartrate 25 mg tablet 75 mg PO Q12HR #60 tabs 07/01/22 07/08/22 Rx metoprolol tartrate 50 mg tablet 75 mg PO BID 07/01/22 07/08/22 History omeprazole 20 mg capsule,delayed 20 mg PO DAILY 07/01/22 07/08/22 History release potassium chloride 10 mEq 10 meq PO 4XW 07/01/22 07/08/22 History capsule,extended release rosuvastatin 5 mg tablet 5 mg PO 4XW 07/01/22 07/08/22 History valsartan 160 See Rx Instructions .Route 07/07/22 07/08/22 Rx mg-hydrochlorothiazide 12.5 mg .COMPLEX #30 tabs tablet levothyroxine 100 mcg tablet 100 mcg PO DAILY #90 tabs 07/08/22 07/08/22 Rx Allergies Allergy/AdvReac Type Severity Reaction Status Date / Time isosorbide Allergy Unknown CLAUSTROPHOBIC Verified 07/08/22 09:14 FEELING Vital Signs Vital Signs - 24 hr 06/30/22 19:43 07/01/22 00:24 Temperature 98.4 F Pulse Rate 87 64 Respiratory Rate 17 16 Blood Pressure 147/91 H 149/83 H Pulse Oximetry 100 99 Oxygen Deliver
[2022-07-01] MEDS: ASPIRIN 81 MG ENTERIC TABLET PO ×2 (05:29→09:06)
[2022-07-01 05:36] LABS: Cholesterol 182 mg/dL (0-200); Creatine Kinase 58 U/L (30-135); HDL Direct 37 mg/dL; Triglycerides 130 mg/dL (<150)
[2022-07-01 05:47] LABS: LDL Cholesterol Direct 103 mg/dL
--- NOTE | 2022-07-01 06:00 | ADMGEN ---
This patient, Emily Mitchell, was admitted to Intensive Care Unit-5 as an IMU overflow. Patient/family oriented to hospital policies and general routines including ID bracelet, bed and alarms, visiting hours, pain management, procedures, bathroom and other care routines, personal items, smoking policy, room service/diet, and visiting hours. Information on how to activate the Rapid Response Team has been discussed. Patient/Family are encouraged to report perceived risks to care and to ask questions if they do not understand what they are told or what they should do.
--- NOTE | 2022-07-01 08:01 | PM.CNCAR ---
Assessment and Plan Assessment and plan (1) PSVT (paroxysmal supraventricular tachycardia): Code(s): I47.1 - Supraventricular tachycardia Status: Acute Assessment and Plan: Probably recurrence. I gave her option of increasing Metoprolol Tartate 75 mg BID or starting Sotalol, and she would like the former given she has been free of SVT for nearly 2 years. (2) Elevated troponin: Code(s): R77.8 - Other specified abnormalities of plasma proteins Status: Acute Assessment and Plan: Mild and peaked at 0.0.35. Obtain echo. If echo is OK, may d/c home from cardiology standpoint and f/u with me in 1 week. (3) NILAM (obstructive sleep apnea): Code(s): G47.33 - Obstructive sleep apnea (adult) (pediatric) Status: Acute Assessment and Plan: Use CPAP regularly. (4) Hypertension: Qualifiers: Hypertension type: primary hypertension Qualified Code(s): I10 - Essential (primary) hypertension Code(s): I10 - Essential (primary) hypertension Status: Acute Assessment and Plan: Stable. (5) Dyslipidemia: Code(s): E78.5 - Hyperlipidemia, unspecified Status: Acute Assessment and Plan: On Rosuvastatin. History of Present Illness History of Present Illness Consult date/time: 07/01/22 08:01 Reason For Visit: Exertional Chest Pain Narrative: 82 yr old woman who is my regular cardiology patient presents to ER with sob and lightheadedness. She has a history of NILAM on CPAP (sees Dr. Perez), hypertension, dyslipidemia, PSVT, COVID infection in Mar 2020. Reports she was doing water aerobics and she felt 1/10 chest pressure, sob. She checked her watch and it showed HR of 140's bpm. It lasted about 6 hours. She then came in to ER.? She can walk at least 1 block and swimming without any problems.? She uses her CPAP and sleeping well with it and using up to 8 hours a night.? She noted she does not have to get up to use restroom several times like she had prior to using CPAP.? Less sleepiness during the day. Denies chest pain, orthopnea, PND, edema. Cardiovascular Procedures Electrophysiology:: 01/20/22 EKG: Sinus rhythm, PVC, borderline AV conduction delay, low voltage- precordial leads, consider inferior infarct. 09/27/18 EKG: SVT at 143 bpm. 09/10/18 EKG: SVT at 133 bpm. 02/07/18 EKG: Sinus tachycardia, low voltage in precordial leads, delayed precordial R/S transition, possible LVH. 02/07/18 EKG: SVT at 136 bpm. Stress Tests:: 01/07/22 Lexiscan myoview: Normal. 10/10/18 Sleep study: At least mod NILAM. Review of Systems Review of Systems: All systems reviewed & are unremarkable except as noted in HPI and below Constitutional: Constitutional: Reports as per HPI, Denies chills and Denies fever(s) Cardiovascular: Cardiovascular: Reports as per HPI, Reports chest pain and Denies irregular heart rhythm Respiratory: Respiratory: Reports as per HPI and Reports dyspnea Gastrointestinal: Gastrointestinal: Reports as per HPI and Denies abdominal pain Genitourinary: Genitourinary: Reports as per HPI and Denies dysuria Musculoskeletal: Musculoskeletal: Reports as per HPI Neurologic: Reports as per HPI, Reports dizziness and Denies syncope [facility] Past Medical History Medical History BMI 36.0-36.9,adult Degenerative joint disease involving multiple joints Essential hypertension Hypothyroidism Mixed hyperlipidemia NILAM on CPAP Surgical History Surgical History History of hip replacement (~2012) Family History Family History Mother Hypertension Family history of Alzheimer's disease Father Carcinoma of colon, Onset Age: 75 Family history of cardiovascular disease Social History Social History Social History: Smoking status
[2022-07-01] MEDS: ENOXAPARIN 40 MG/0.4 ML SYRINGE SUB-Q (09:05)
[2022-07-01] MEDS: METOPROLOL TARTRATE 25 MG TABLET 75 MG PO (09:06)
[2022-07-01] MEDS: ROSUVASTATIN 5 MG TABLET PO (09:06)
[2022-07-01 11:04] LABS: Troponin I 0.027 ng/mL (0.000-0.034)
[2022-07-01 11:35] LABS: Free T4 Free Thyroxine Reflex 1.01 ng/dL (0.78-2.19)
--- NOTE | 2022-07-01 15:43 | PM.DS ---
DS: Admitting Diagnosis Discharge Date 07/01/2022 Admitting Diagnosis proximal supraventricle tachycardia DS: Discharge Diagnosis Discharge Diagnosis (1) Chest pain: Code(s): R07.9 - Chest pain, unspecified Status: Acute Assessment and Plan: Rule out ACS serial marker ECG cardiology consult Aspirin metoprolol statin (2) Elevated troponin: Code(s): R77.8 - Other specified abnormalities of plasma proteins Status: Acute Assessment and Plan: Rule out ACS as above (3) Hypothyroidism: Qualifiers: Hypothyroidism type: acquired Qualified Code(s): E03.9 - Hypothyroidism, unspecified Code(s): E03.9 - Hypothyroidism, unspecified Status: Acute Assessment and Plan: Resume home medication (4) NILAM (obstructive sleep apnea): Code(s): G47.33 - Obstructive sleep apnea (adult) (pediatric) Status: Acute Assessment and Plan: Resume CPAP (5) PSVT (paroxysmal supraventricular tachycardia): Code(s): I47.1 - Supraventricular tachycardia Status: Acute Assessment and Plan: Continue tele monitor (6) Dyslipidemia: Code(s): E78.5 - Hyperlipidemia, unspecified Status: Acute Assessment and Plan: Above panel statin (7) Hypertension: Qualifiers: Hypertension type: primary hypertension Qualified Code(s): I10 - Essential (primary) hypertension Code(s): I10 - Essential (primary) hypertension Status: Acute Assessment and Plan: Pending home medication reconciliation DS: Summary Hospital Course Reason for hospitalization: Chief Complaint: 82 years old female with past medical history of hyperlipidemia hypertension presented to the hospital with chest pain intermittent pressure-like no radiation aggravated with activity improved with rest patient denies shortness of breath patient Luis her heart rate was around 120 as she took metoprolol which she normally took for tachycardia her heart rate has improved and the chest pain has resolved patient came to the ER for further evaluation and treatment troponin was mildly elevated Hospital Course: patient presented with a proximal supraventricular tachycardia patient was seen by her Cardiology started the patient on metoprolol tartrate 75 mg b.i.d., her rate is controlled patient is clinically stable will discharge the patient, 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 DS: Data Data Completed and Pending Labs on day of discharge: Labs from last 24 hours 07/01/22 07/01/22 07/01/22 10:09 10:09 10:08 WBC RBC Hgb Hct MCV MCH MCHC RDW Plt Count MPV Immature Gran % (Auto) Neut % (Auto) Lymph % (Auto) [place] % (Auto) Eos % (Auto) Baso % (Auto) Lymph # (Auto) [place] # (Auto) Eos # (Auto) Baso # (Auto) Abs Immat Gran (auto) Absolute Neuts (auto) Absolute Nucleated RBC Nucleated RBC % PT INR APTT Sodium Potassium Chloride Carbon Dioxide Anion Gap BUN Creatinine Estim Creat Clear Calc Estimated GFR Glucose Calcium Total Bilirubin AST ALT Alkaline Phosphatase Total Creatine Kinase Troponin I 0.027 Total Protein Albumin Triglycerides Cholesterol LDL Cholesterol Direct HDL Direct Lipase TSH (Reflex) Free T4 1.01 Total T3 Pending 07/01/22 07/01/22 07/01/22 03:22 03:22 00:21 WBC RBC Hgb Hct MCV MCH MCHC RDW Plt Count MPV Immature Gran % (Auto) Neut % (Auto) Lymph % (Auto) [place] % (A
[2022-07-01 21:06] LABS: Total Triiodothyronine (T3) 1.18 NG/ML (0.97-1.69)
== END 2022-07-01 16:20 | disposition home or self-care (01) ==
LOC: ANHED 07-01 02:23 → ANHICU 07-01 06:35 → ANH3MEDSUR 07-02 11:55 → ANHICU 07-02 11:55
PROVIDERS: Emergency Medicine; Admitting Provider Internal Medicine; Emergency Provider Emergency Medicine; PCP Family Medicine; Visit Provider Family Medicine
DX: R07.89 Other chest pain (principal); I47.1 Supraventricular tachycardia; R77.8 Other specified abnormalities of plasma proteins; Z79.82 Long term (current) use of aspirin; I10 Essential (primary) hypertension; E78.5 Hyperlipidemia, unspecified; G47.33 Obstructive sleep apnea (adult) (pediatric); E03.9 Hypothyroidism, unspecified
CPT/HCPCS: 36415; 71046; 80053; 80061; 82550; 83690; 84439; 84443; 84480; 84484; 85025; 85610; 85730; 93005; 93306; 96372; 99285; A9270; G0378; J1650

== ENCOUNTER 2022-08-25 09:44 | Outpatient (CLI) | payer MEDICARE, SELFPAY ==
[2022-08-25 11:10] LABS: Basophils Absolute Auto 0.1 K/mm3 (0.0-0.1); Basophils Percent Auto 0.5 % (0.2-1.2); Eosinophils Absolute Auto 0.2 K/mm3 (0-0.3); Eosinophils Percent Auto 1.8 % (0-4.4); Hematocrit 42.9 % (37.0-47.0); Hemoglobin 13.8 g/dL (12.0-15.0); Immature Granulocyte Absolute 0.05 K/mm3 (0.00-0.031); Immature Granulocyte Percent A 0.5 % (0-0.5); Lymphocytes Absolute Auto 1.66 K/mm3 (0.9-3.2); Lymphocytes Percent Auto 17.7 % (18.3-44.2); Mean Corpuscular HGB Conc 32.2 g/dl (32-36); Mean Corpuscular Hemoglobin 29.2 pg (26-34); Mean Corpuscular Volume 90.9 fl (80-100); Mean Platelet Volume 9.2 fl (7.4-10.4); Monocytes Absolute Auto 1.1 K/mm3 (0.1-0.6); Monocytes Percent Auto 12.1 % (2.6-8.5); Neutrophils Absolute Auto 6.3 K/mm3 (1.3-6.7); Neutrophils Percent Auto 67.4 % (45.5-73.1); Platelet Count Result 284 k/mm3 (150-375); Red Blood Count 4.72 M/mm3 (4.2-5.4); Red Cell Distribution Width 13.1 % (11.5-14.5); White Blood Count 9.4 K/mm3 (4.5-10.0)
[2022-08-25 11:21] LABS: Albumin Level 4.2 g/dL (3.5-5.1)
[2022-08-25 11:24] LABS: Anion Gap 6 mmol/L (8-16); Blood Urea Nitrogen 12 mg/dL (7-17); Calcium 9.2 mg/dL (8.4-10.2); Carbon Dioxide 33 mmol/L (22-30); Chloride 99 mmol/L (98-107); Estimated Glomerular Filt Rate > 60; Glucose 100 mg/dL (65-110); Potassium 3.9 mmol/L (3.4-5.0); Sodium 138 mmol/L (137-145)
[2022-08-25 12:17] LABS: Hemoglobin A1C 6.1 % (<5.7)
[2022-08-25 12:59] LABS: Urine Cotinine NEGATIVE
== END 2022-08-25 09:45 | disposition home or self-care (01) ==
LOC: ANHSURGERY 09:47
PROVIDERS: Anesthesiology; PCP Family Medicine; Visit Provider Orthopaedic Surgery
DX: Z01.818 Encounter for other preprocedural examination (principal); Z51.81 Encounter for therapeutic drug level monitoring; M17.12 Unilateral primary osteoarthritis, left knee
CPT/HCPCS: 36415; 80048; 80307; 82040; 83036; 85025; 87081

== ENCOUNTER 2022-09-16 00:16 | Day surgery (SDC) | payer MEDICARE, SELFPAY ==
[2022-08-25 10:06] VITALS: BP 121/68; PULSE 60; RESP 16; TEMP 37.4; O2SAT 99; BMI 36.5
--- NOTE | 2022-08-25 10:17 | PC.NURSE ---
Report to the Outpatient Waiting Room, entrance under the green pavilion located off [address], at time __6:00AM on date ___09/16/22____. Planned Procedure Time: __7:30AM . Time changes happen often and if your time is changed the preop area will call you the afternoon before. - You and your visitor will be asked to self-screen and do not enter if you have any COVID symptoms. - A mask is optional within the hospital at this time. Patients may have clear liquids (water, carbonated beverages, clear teas, apple juice) until 3 hours prior to surgery with a maximum of 20 ounces. - No food from midnight until time of surgery Take the following medications with a SIP of water the morning of surgery: __AMLODIPINE, LEVOTHYROXINE, METOPROLOL DO NOT STOP ANY OF YOUR OTHER PRESCRIPTION MEDICATIONS PRIOR TO SURGERY ?EXCEPT THE FOLLOWING Medications to discontinue per physician ___HOLD ASPIRIN 7 DAYS PRE-OP- LAST DOSE 09/09/22, HOLD ALL VITAMINS/SUPPLEMENTS 3 DAYS PRE-OP- LAST DOSE 09/12/22 Please no make-up, nail montserratian, hairspray, perfume, deodorant, or body powder the day of surgery. No jewelry (including any body piercings) or valuables the day of surgery, leave them at home. Please take a shower or bath the night before, or the morning of, surgery with an antibacterial soap. Wear comfortable, loose fitting clothing. Children are encouraged to wear pajamas. - Jewelry must be removed prior to entering the operating room. Rings and piercings that are not removed may be cut off. - The hospital will not accept responsibility for valuables. - Please leave all valuables, including medications, at home the day of surgery. If you are going home after surgery, a licensed bottom hoop driver must drive you home. - NO public transportation without another adult if you receive anesthesia. - We recommend that an adult stay with you for 24 hours following discharge. - We also recommend that you do not drive, make important decision, drink alcoholic beverages, or take any drugs that were not prescribed by your health care provider for at least 24 hours after your discharge time. Follow any additional instructions given to you from your surgeon. If you or anyone in your household have experienced Covid symptoms in the past week, please notify your surgeon or the nurse liaison at the phone number below for possible testing. Telephone instructions given to __PATIENT and asked if any additional questions and then verbalized understanding. Patient advised to call surgeon office or pre surgery nurse liaison [phone] if any additional questions.
[2022-09-16] VITALS (15 sets, daily range): BP systolic 110–150; BP diastolic 61–76; PULSE 61–83; RESP 10–20; TEMP 36.6–37.2; O2SAT 91–96
--- NOTE | ~2022-09-16 | XR_ITS ---
Left Knee Technique: Portable AP and crosstable lateral views Clinical History: Status post TKR Findings: Patient is status post total knee replacement. Orthopedic hardware alignment appears anatom ic. No hardware complication is evident. Subcutaneous emphysema and swelling is likely postoperative in nature. No acute osseous fracture is seen. Impression: Status post total knee replacement, without evidence of hardware complication. Reviewed, dictated and finalized at location . Impression: Status post total knee replacement, without evidence of hardware complication.
[2022-09-16] MEDS: ACETAMINOPHEN 500 MG TABLET 1000 MG PO ×4 (06:41→23:39)
[2022-09-16] MEDS: LACTATED RINGERS 1,000 ML 30 ML IV CONT ×2 (06:45→09:18)
[2022-09-16] MEDS: TRANEXAMIC ACID 1,000MG/ISO100 1,000 MG/100 ML BAG 200 MG IVPB (07:02)
--- NOTE | 2022-09-16 07:07 | WPDANESEPPF ---
Anes - Initial Pre Proc Eval Procedure: Operation Date: 09/16/22 07:30 Proposed Procedures p Left Total Knee Arthroplasty - Pola Soriano MD Date/Time: 09/16/22 07:07 Surgeon: Pola Soriano MD Pre Op Diagnosis: Prim O A Lt Knee Patient Data Age: 82 Gender: F Height: 1.56 m Weight: 89.1 kg Last Vital Signs Temp 37.4 C 08/25/22 10:06 Pulse 60 08/25/22 10:06 Resp 16 08/25/22 10:06 BP 121/68 08/25/22 10:06 Pulse Ox 99 08/25/22 10:06 O2 Del Method Room Air 08/25/22 10:06 Allergies Allergy/AdvReac Type Severity Reaction Status Date / Time isosorbide Allergy Unknown CLAUSTROPHOBIC Verified 09/16/22 06:33 FEELING Home Medications Medication Instructions Recorded Confirmed Type multivitamin (Daily Multi-Vitamin 1 tablet PO DAILY 03/18/21 09/16/22 History tablet) acetaminophen 650 mg 650 mg PO BID PRN PAIN 10/22/21 09/16/22 History tablet,extended release ascorbic acid (vitamin C) 500 mg 500 mg PO DAILY 02/22/22 09/16/22 History tablet (Vitamin C) amlodipine 10 mg tablet 10 mg PO QAM 07/01/22 09/16/22 History aspirin 81 mg tablet,delayed 81 mg PO QAM #30 tabs 07/01/22 09/16/22 Rx release magnesium oxide 400 mg (241.3 mg 400 mg PO EVERY OTHER DAY 07/01/22 09/16/22 History magnesium) tablet metoprolol tartrate 50 mg tablet 50 mg PO BID 07/01/22 09/16/22 History omeprazole 20 mg capsule,delayed 20 mg PO QAM 07/01/22 09/16/22 History release potassium chloride 10 mEq 10 meq PO EVERY OTHER DAY 07/01/22 09/16/22 History capsule,extended release rosuvastatin 5 mg tablet 5 mg PO EVERY OTHER DAY 07/01/22 09/16/22 History valsartan 160 See Rx Instructions .Route 07/07/22 09/16/22 Rx mg-hydrochlorothiazide 12.5 mg .COMPLEX #30 tabs tablet levothyroxine 100 mcg tablet 100 mcg PO DAILY #104 tabs 07/18/22 09/16/22 Rx calcium carbonate 500 mg-vitamin 2 tablet PO BID 08/25/22 09/16/22 History D3 10 mcg (400 unit) chewable tablet (Calcium 500 + D) metoprolol tartrate 25 mg tablet 25 mg PO Q12HR 08/25/22 09/16/22 History Patient hx anesthesia problems: none Family hx anesthesia problems: none Results Review: All pre-operative results and documents have been reviewed as part of the pre-operative evaluation. FORMERLY [facility], [facility] Past Medical History Medical History BMI 36.0-36.9,adult Degenerative joint disease involving multiple joints Essential hypertension Hypothyroidism Mixed hyperlipidemia NILAM on CPAP Surgical History Surgical History History of hip replacement (~2012) Family History Family History Mother Hypertension Family history of Alzheimer's disease Father Carcinoma of colon, Onset Age: 75 Family history of cardiovascular disease Social History Social History Social History: Smoking status: Never smoker Second hand tobacco smoke exposure: Yes Additional smoking assessment comments: PT DENIES ALL FORMS OF TOBACCO USE Alcohol intake: never Substance use: never Substance use type: does not use Lack of Transportation: No Lack of Food: Never True Current Housing: I Have Housing Concerned About Future Housing: Decline to Answer Difficulty Paying Gas/Electric Bills: Decline to Answer Difficulty Paying for Meds: Decline to Answer Currently Unemployed: Decline to Answer Education: Decline to Answer Difficulty w/ Childcare or Family Care: Decline to Answer Living arrangements: with family Additional living arrangements comments: [place] Occupation/Education: retired Gender identity (if verbalized by the patient): Female Sexual Orientation (if Verbalized by the Patient): Straight or Heterosexual Spiritual care concerns: No Anes - Eval Final PreProcedure Day
--- NOTE | 2022-09-16 07:16 | SUR.PREOP ---
0653-Dr. Quach aware of PAT [id number] further ordered. 0715-Dr. Soriano aware of mild rash on left knee area from pain patch.
--- NOTE | 2022-09-16 07:17 | WPDHPUPDATE1 ---
History and Physical Update Update Date/Time: 09/16/22 07:17 History and Physical has been reviewed, including an updated exam of the patient. There are NO changes in the patient's condition. Risks, benefits, and alternatives have been discussed and questions answered. Patient agrees to proceed with procedure.
--- NOTE | 2022-09-16 07:29 | WPDANESPNB ---
Anes - Peripheral Nerve Block Date/Time: 09/16/22 07:29 I have discussed with the patient/family/POA the placement of a peripheral nerve block for post-operative pain management, including associated risks, benefits, complications, and side effects. Alternative methods of post-operative analgesia were detailed. Questions were solicited and answers provided to the satisfaction of the patient/family/POA. Time-Out: A pre-procedural Time-Out was completed immediately before starting the procedure and confirmed: Patient Identification, Site, Procedure, Patient Position and the Availability of Requisite Equipment. Clinical Indications: Acute post-operative pain management requested by the operative surgeon. Nerve Block Insertion Note Anes-nerve block: adductor canal left Patient position: supine Skin prep: chlorhexidine Needle: 22 gauge, stimulating, insulated echogenic needle. Needle length: 80 mm Technique: ultrasound Technique comment: mid1mg [id number] Injectate: bupivacaine 0.5% with epi 5 mcg/ml (30ml no epi) and dexamethasone (mg) (4) Observations: tolerated well Complications: none Procedure start time:: 718 Procedure end time:: 725
[2022-09-16] MEDS: ceFAZolin 2 GM/D5W 50 ML 2 GM/50 ML BAG IVPB ×3 (07:30→23:39)
--- NOTE | 2022-09-16 08:24 | SUR.OPER ---
Informed of hemolyzed preoperative Type and Screen specimen @2876, order was released for redraw. New STAT Type and Screen obtained by COMPENSATION AND BENEFITS MANAGER and sent to lab @6185 via tube system.
--- NOTE | 2022-09-16 09:18 | P.OP_ITS ---
Procedure Note - Detailed Date of Procedure 09/16/22 Pre-op Diagnosis Prim O A Lt Knee Post-op Diagnosis Same Procedure Performed Total knee arthroplasty, left. Surgeon Pola Soriano MD Shift Production Supervisor Aurelia Chew PA-C Anesthesia General and Regional (subsartorial block) Findings Excellent bone quality. Minimal medial release. Slight PCL release. Standard bone resections and rotation. Description of Procedure The patient was brought to the operating room. A general anesthetic was administered. The leg was prepped and draped in the usual sterile fashion. The limb was elevated and the tourniquet inflated to 300 mmHg. A longitudinal incision was created along the medial border of the patella and patellar tendon, and a trivector approach to the knee was performed. A mild medial release was taken. The knee was then flexed. The osteophytes were carefully removed. The intramedullary guide was placed in the femoral canal. The distal femoral resection was then taken with the oscillating saw. The collateral ligaments were carefully protected. The tibia was carefully exposed. The jig was applied, and the proximal tibia was resected according to preoperative plan. The knee was balanced in extension. Appropriate releases were taken where needed. The anterior cruciate ligament and meniscal remnants were removed. The posterior cruciate ligament was preserved. The patella was denervated, and peripatellar osteophytes removed. The femur was sized and rotation assessed using a combination of gap balancing, posterior referencing, and the AP axis. The 4 in 1 cutting block was used to finish the femoral cuts after equal gaps were assured. The osteophytes were carefully removed from the back of the knee. The knee was copiously irrigated with antibiotic solution periodically throughout the procedure. The meniscal remnants were removed. The spacer block was used to confirm equal flexion and extension gaps. Slight PCL release performed. The tibia was sized and broached. The bony surfaces were prepared for cementing with pulsatile lavage. The real tibia was cemented into position. The femur was press-fit. Excess cement was carefully removed. Patellar tracking was carefully assessed. No additional releases were required. Copious irrigation then performed. The wound was closed with #1 Vicryl suture, #2, 2-0, and 3-0 barbed suture, followed by Steri-Strips. A sterile bulky dressing was applied. Meticulous hemostasis was maintained throughout the procedure, and the bipolar cautery device was used. The pain relieving mixture was injected into the periarticular tissues during the procedure. There were no complications. The patient was extubated and brought to the recovery room in stable condition after the application of sterile dressing with Boogie bandage. Implants [place] Triathlon knee system, low profile cemented tibia size 3, press-fit cruciate retaining femoral component size 3 ,and an 10 mm cruciate retaining polyethylene insert. Estimated Blood Loss 25 Drains No Pathology None sent Complications No immediate complications Condition Stable Disposition PACU [facility] Billing Surgery - Charge Forward: Surgery Billing
--- NOTE | 2022-09-16 11:44 | PC.NURSE ---
This patient, Emily Mitchell, was admitted to 3 [facility] Surg Room 320-01. Patient/family oriented to hospital policies and general routines including ID bracelet, bed and alarms, visiting hours, pain management, procedures, bathroom and other care routines, personal items, smoking policy, room service/diet, and visiting hours. Information on how to activate the Rapid Response Team has been discussed. Patient/Family are encouraged to report perceived risks to care and to ask questions if they do not understand what they are told or what they should do.
[2022-09-16] MEDS: ROSUVASTATIN 5 MG TABLET PO (17:00)
[2022-09-16] MEDS: MELOXICAM 7.5 MG TABLET PO (17:01)
[2022-09-16] MEDS: ASPIRIN 81 MG ENTERIC TABLET PO (17:01)
[2022-09-16] MEDS: METOPROLOL TARTRATE 25 MG TABLET 75 MG PO (19:56)
[2022-09-16] MEDS: SENNA/DOCUSATE SODIUM TABLET 2 TAB PO (19:56)
[2022-09-17 00:44] VITALS: BP 106/60; PULSE 78; RESP 16; TEMP 36.7; O2SAT 92
[2022-09-17 04:59] VITALS: BP 140/79; PULSE 70; RESP 18; TEMP 36.7; O2SAT 97
[2022-09-17] MEDS: ACETAMINOPHEN 500 MG TABLET 1000 MG PO (05:39)
[2022-09-17] MEDS: LEVOTHYROXINE SODIUM 100 MCG TABLET PO (05:39)
[2022-09-17 06:19] LABS: Basophils Percent Auto 0.1 % (0.2-1.2); Hematocrit 38.9 % (37.0-47.0); Hemoglobin 12.6 g/dL (12.0-15.0); Immature Granulocyte Absolute 0.11 K/mm3 (0.00-0.031); Immature Granulocyte Percent A 0.7 % (0-0.5); Lymphocytes Absolute Auto 1.17 K/mm3 (0.9-3.2); Lymphocytes Percent Auto 7.4 % (18.3-44.2); Mean Corpuscular HGB Conc 32.4 g/dl (32-36); Mean Corpuscular Hemoglobin 29.4 pg (26-34); Mean Corpuscular Volume 90.7 fl (80-100); Mean Platelet Volume 9.2 fl (7.4-10.4); Monocytes Absolute Auto 1.2 K/mm3 (0.1-0.6); Monocytes Percent Auto 7.5 % (2.6-8.5); Neutrophils Absolute Auto 13.3 K/mm3 (1.3-6.7); Neutrophils Percent Auto 84.3 % (45.5-73.1); Platelet Count Result 271 k/mm3 (150-375); Red Blood Count 4.29 M/mm3 (4.2-5.4); Red Cell Distribution Width 13.5 % (11.5-14.5); White Blood Count 15.8 K/mm3 (4.5-10.0)
[2022-09-17 06:31] LABS: Anion Gap 7 mmol/L (8-16); Blood Urea Nitrogen 15 mg/dL (7-17); Calcium 8.9 mg/dL (8.4-10.2); Carbon Dioxide 26 mmol/L (22-30); Chloride 101 mmol/L (98-107); Estimated CRCL calculation 76 ml/min; Estimated Glomerular Filt Rate > 60; Glucose 124 mg/dL (65-110); Potassium 3.9 mmol/L (3.4-5.0); Sodium 134 mmol/L (137-145)
[2022-09-17] MEDS: ceFAZolin 2 GM/D5W 50 ML 2 GM/50 ML BAG IVPB (08:21)
[2022-09-17 08:22] VITALS: PULSE 65
[2022-09-17] MEDS: MELOXICAM 7.5 MG TABLET PO (08:22)
[2022-09-17] MEDS: amLODIPine BESYLATE 5 MG TABLET 10 MG PO (08:22)
[2022-09-17] MEDS: polyethylene glycoL 3350 17 GM POWD.PACK PO (08:22)
[2022-09-17] MEDS: PANTOPRAZOLE 40 MG TABLET PO (08:22)
[2022-09-17] MEDS: ASPIRIN 81 MG ENTERIC TABLET PO (08:22)
[2022-09-17] MEDS: METOPROLOL TARTRATE 25 MG TABLET 75 MG PO (08:22)
[2022-09-17] MEDS: SENNA/DOCUSATE SODIUM TABLET 2 TAB PO (08:22)
[2022-09-17] MEDS: predniSONE 5 MG TABLET PO (08:23)
[2022-09-17 08:59] VITALS: BP 128/65; PULSE 71; RESP 16; TEMP 36.2; O2SAT 94
--- NOTE | 2022-09-17 09:37 | PM.DS ---
DS: Admitting Diagnosis Discharge Date 09/17/22 Admitting Diagnosis OA knee Left DS: Discharge Diagnosis Discharge Diagnosis Plan Postop day 1: Left total knee arthroplasty. Patient tolerated procedure well. No complications. Pain manageable with pain medication. No numbness or tingling. We had a lengthy discussion regarding postoperative wound care, limitations, expectations, and exercises. Patient shows good understanding. She has had initial physical therapy and is tolerating it well. DVT prophylaxis: 81 mg baby aspirin b.i.d. for 14 days. Pain medication: Percocet. Patient has followup appointment with Dr. Soriano in 3 weeks. DS: Summary Hospital Course Reason for hospitalization: Total knee arthroplasty Hospital Course: Patient tolerated procedure well. Has had initial PT/OT. Status at Discharge Functional status at discharge: uses cane/walker Overall status at discharge: patient is progressing back to baseline Time Spent with Patient Time attestation: Total time spent providing and/or coordinating discharge services: Exam Narrative: 82-year-old overweight female. Resting comfortably in chair. Alert and oriented x3. No acute distress. Wearing compression socks bilaterally. Dressing intact without drainage. Mild swelling. No ecchymosis. No erythema. No hematoma. Range of motion limited due to pain. Calf nontender. Neurologic status intact. No varicosities. Distal pulses palpable. DS: Data Data Completed and Pending Labs on day of discharge: Labs from last 24 hours 09/17/22 09/16/22 06:04 11:13 WBC 15.8 H RBC 4.29 Hgb 12.6 Hct 38.9 MCV 90.7 MCH 29.4 MCHC 32.4 RDW 13.5 Plt Count 271 MPV 9.2 Immature Gran % (Auto) 0.7 H Neut % (Auto) 84.3 H Lymph % (Auto) 7.4 L [place] % (Auto) 7.5 Eos % (Auto) 0.0 Baso % (Auto) 0.1 L Lymph # (Auto) 1.17 [place] # (Auto) 1.2 H Eos # (Auto) 0.0 Baso # (Auto) 0.0 Abs Immat Gran (auto) 0.11 H Absolute Neuts (auto) 13.3 H Absolute Nucleated RBC 0.0 Nucleated RBC % 0.0 Sodium 134 L Potassium 3.9 Chloride 101 Carbon Dioxide 26 Anion Gap 7 L BUN 15 Creatinine 0.50 L Estim Creat Clear Calc 76 Estimated GFR > 60 Glucose 124 H Calcium 8.9 Blood Type A Positive Antibody Screen Negative Discharge Plan Discharge Patient Disposition: Home, Self-Care Discharge Instructions: See green instruction sheets Stand Alone Forms: General Discharge Instructions Follow-up/Referrals: Aurelia Chew PA [Physician Java Programming Professor] - Discharge Medications: New meloxicam 15 mg tablet 15 mg PO DAILY Qty: 30 0RF Rx Instructions: Cut in half. Take 1/2 in morning and 1/2 at night. Take with food. Stop if stomach upset. prednisone 5 mg tablet 5 mg PO DAILY 21 Days Qty: 21 0RF aspirin 81 mg tablet,delayed release (DR/EC) 81 mg PO BID 14 Days Qty: 28 0RF oxycodone-acetaminophen 5-325 mg tablet 1 - 2 tablet PO Q4-6H MDD 6 PRN (Reason: pain) Qty: 30 0RF Continued multivitamin [Daily Multi-Vitamin] Tablet 1 tablet PO DAILY Patient Comments: AFTERNOON acetaminophen 650 mg tablet extended release 650 mg PO BID PRN (Reason: PAIN) levothyroxine 100 mcg tablet 100 mcg PO DAILY Qty: 104 2RF Rx Instructions: TAKE 1 TABLET DAILY EXCEPT TAKE 2 ON SUNDAYS ascorbic acid (vitamin C) [Vitamin C] 500 mg Tablet 500 mg PO DAILY Patient Comments: AFTERNOON Rx Instructions: daily at 1500 potassium chloride 10 mEq capsule, extended release 10 meq PO EVERY OTHER DAY magnesium oxide 400 mg (241.3 mg magnesium) tablet 400 mg PO EVERY OTHER DAY amlodipine 10 mg tablet 10 mg PO QAM omeprazole 20 mg capsule,delayed release(DR/EC) 20 mg PO QAM rosuvastatin 5 mg tablet 5 mg PO EVERY OTHER DAY metoprolol tartrate 50 mg tablet 50 mg PO BID Rx Instructions: TA
== END 2022-09-17 10:34 | disposition home or self-care (01) ==
LOC: ANHSURGERY 09:24 → ANH3MEDSUR 11:19
PROVIDERS: Physician Assistant Surgical; PCP Family Medicine; Visit Provider Orthopaedic Surgery
PROC: (CPT 27447; principal; 2022-09-16 07:30)
DX: M17.12 Unilateral primary osteoarthritis, left knee (principal); G89.18 Other acute postprocedural pain; I10 Essential (primary) hypertension; E03.9 Hypothyroidism, unspecified; E78.2 Mixed hyperlipidemia; G47.33 Obstructive sleep apnea (adult) (pediatric); E66.9 Obesity, unspecified; Z68.36 Body mass index [BMI] 36.0-36.9, adult; Z79.82 Long term (current) use of aspirin
CPT/HCPCS: 27447; 64447; 36415; 73560; 80048; 80307; 82040; 83036; 85025; 86850; 86900; 86901; 87081; 97110; 97116; 97161; 97165; 97530; 97535; A9270; C1713; C1776; J0171; J0690; J1100; J1885; J2250; J2270; J2405; J2704; J2795; J3010; J7120; J7512

== ENCOUNTER → 2022-11-25 12:24 | Outpatient (CLI) | payer MEDICARE, SELFPAY ==
--- NOTE | ~2022-11-25 | MM_ITS ---
EXAMINATION: MM screening jj BI w ruam HISTORY: Screening mammogram TECHNIQUE: Craniocaudal and mediolateral oblique 3-D tomosynthesis images were obtained and synthetic 2-D images were generated. CAD analysis was submitted and interpreted. COMPARISON: September 07, 2021, July 11, 2020, June 01, 2019 bilateral screening mammogram examina tions BREAST PARENCHYMAL COMPOSITION: There are scattered areas of fibroglandular density. FINDINGS: There is no evidence of suspicious mass, calcification, or architectural distortion to sugg est malignancy in either breast. There has been no suspicious interval change. IMPRESSION: 1. No mammographic evidence of malignancy. 2. Recommend routine screening mammography in one year. BI-RADS Category 1: Negative Reviewed, dictated and finalized at location A.
== END ==
PROVIDERS: PCP Family Medicine; Visit Provider Family Medicine
DX: Z12.31 Encounter for screening mammogram for malignant neoplasm of breast (principal)
CPT/HCPCS: 77063; 77067

== ENCOUNTER 2023-12-29 15:12 | Outpatient (CLI) | payer MEDICARE, SELFPAY ==
--- NOTE | ~2023-12-29 | MM_ITS ---
EXAMINATION: MM screening jj BI w ruma HISTORY: Screening TECHNIQUE: Craniocaudal and mediolateral oblique 3-D tomosynthesis images were obtained and synthetic 2-D images were generated. CAD analysis was submitted and interpreted. COMPARISON: Comparison to multiple prior studies sequentially, with oldest reviewed study dated 06/01. BREAST PARENCHYMAL COMPOSITION: There are scattered areas of fibroglandular density. FINDINGS: There is no evidence of suspicious mass, calcification, or architectural distortion to sugg est malignancy in either breast. There has been no suspicious interval change. IMPRESSION: 1. No mammographic evidence of malignancy. 2. Recommend routine screening mammography in one year. BI-RADS Category 1: Negative Reviewed, dictated and finalized at location B.
== END 2023-12-29 15:13 ==
PROVIDERS: PCP Family Medicine; Visit Provider Family Medicine
DX: Z12.31 Encounter for screening mammogram for malignant neoplasm of breast (principal)
CPT/HCPCS: 77063; 77067

== ENCOUNTER 2025-01-01 10:24 | Outpatient (CLI) | payer MEDICARE, SELFPAY ==
--- NOTE | ~2025-01-01 | MM_ITS ---
EXAMINATION: MM screening jj BI w ruma HISTORY: Screening mammogram TECHNIQUE: Craniocaudal and mediolateral oblique 3-D tomosynthesis images were obtained and synthetic 2-D images were generated. CAD analysis was submitted and interpreted. COMPARISON: 12/29/2023, 11/25/2022 BREAST PARENCHYMAL COMPOSITION:Not Dense. There are scattered areas of fibroglandular density. FINDINGS: No suspicious mass, calcification, or architectural distortion are identified in either breast to suggest malignancy. There has been no suspicious interval change. IMPRESSION: No mammographic evidence of malignancy. Recommend routine screening mammography in one year. BI-RADS Category 1: Negative Reviewed, dictated and finalized at location .
== END 2025-01-01 10:25 | disposition home or self-care (01) ==
PROVIDERS: PCP Family Medicine; Visit Provider Family Medicine
DX: Z12.31 Encounter for screening mammogram for malignant neoplasm of breast (principal)
CPT/HCPCS: 77063; 77067

== ENCOUNTER 2025-01-23 08:28 | Outpatient (CLI) | payer MEDICARE, SELFPAY ==
--- OUTSIDE RECORDS SUMMARY | 2025-01-23 08:54 | XMS_ITS | Clinical Summary ---
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 Gender Identity Not on file Sexual Orientation Not on file Last Filed Vital Signs Vital Sign Reading Time Taken Comments Blood Pressure 173/84 11/18/2016 2:53 PM CDT Pulse - - Temperature - - Respiratory Rate - - Oxygen Saturation - - Inhaled Oxygen Concentration - - Weight 81.6 kg (180 lb) 11/18/2016 2:53 PM CDT Height 154.9 cm (5' 1) 11/18/2016 2:53 PM CDT Body Mass Index 34.01 11/18/2016 2:53 PM CDT Plan of Treatment Not on file Insurance [facility] [place] [id number] Care Teams Ops Manager Relationship Specialty Start Date End Date Kelly Mcclain MD [address] [facility] [address] [place] [address] PCP - General 07/21/12
[2025-01-23 19:08] LABS: MALB Creatinine Ratio 74.4 mg/g (0-30)
[2025-01-23 19:14] LABS: Alanine Aminotransferase 19 U/L (6-35); Albumin Level 4.1 g/dL (3.5-5.1); Alkaline Phosphatase 64 U/L (38-126); Anion Gap 9 mmol/L (4-12); Aspartate Amino Transferase 65 U/L (14-36); Bilirubin,Total 0.9 mg/dL (0.2-1.3); Blood Urea Nitrogen 11 mg/dL (7-17); Calcium 9.5 mg/dL (8.4-10.2); Carbon Dioxide 28 mmol/L (22-30); Chloride 101 mmol/L (98-107); Cholesterol 151 mg/dL (0-200); Estimated Glomerular Filt Rate > 60; Glucose 106 mg/dL (65-110); HDL Direct 31 mg/dL; Potassium 4.2 mmol/L (3.4-5.0); Sodium 138 mmol/L (137-145); Total Protein 7.9 g/dL (6.3-8.2); Triglycerides 148 mg/dL (<150)
[2025-01-23 19:17] LABS: Hematocrit 44.4 % (37.0-47.0); Hemoglobin 13.4 g/dL (12.0-15.0); Immature Granulocyte Percent A 0.3 % (0-0.5); Lymphocytes Absolute Auto 1.98 K/mm3 (0.9-3.2); Mean Corpuscular HGB Conc 30.2 g/dl (32-36); Mean Corpuscular Hemoglobin 28.3 pg (26-34); Mean Corpuscular Volume 93.7 fl (80-100); Nucleated Red Blood Cells Absolute Auto 0.000 K/mm3 (0.0-0.012); Nucleated Red Blood Cells Perc 0.0 % (0.0-0.2); Platelet Count Result 324 k/mm3 (150-375); Red Blood Count 4.74 M/mm3 (4.2-5.4); White Blood Count 6.5 K/mm3 (4.5-10.0)
[2025-01-23 19:28] LABS: Free T4 Free Thyroxine 1.63 ng/dL (0.78-2.19)
[2025-01-23 19:31] LABS: Hemoglobin A1C 6.5 % (<5.7)
[2025-01-23 19:51] LABS: Thyroid Stimulating Hormone 0.698 uIU/mL (0.465-4.680)
[2025-01-25 07:09] LABS: Triiodothyronine (T3), Free 3.3 pg/mL (2.0-4.4)
== END 2025-01-23 08:29 | disposition home or self-care (01) ==
LOC: ANHBWCLAB 08:29
PROVIDERS: PCP Family Medicine; Visit Provider Family Medicine
DX: E07.9 Disorder of thyroid, unspecified (principal); E11.9 Type 2 diabetes mellitus without complications; E03.9 Hypothyroidism, unspecified; E78.5 Hyperlipidemia, unspecified; I10 Essential (primary) hypertension
CPT/HCPCS: 36415; 80053; 80061; 82043; 83036; 84439; 84443; 84481; 85025

== ENCOUNTER 2025-02-13 08:46 | Outpatient (CLI) | payer MEDICARE, SELFPAY ==
--- NOTE | 2025-02-13 09:00 | NEURO_ITS ---
Impression: # Non-diabetic complains of numbness of hands. # Bilateral Carpal Tunnel Syndrome. # Right Ulnar Neuropathy across the elbow. # Needle/ EMG exam reveals mildly decreased motor unit potentials in right deltoid. clinical correlation recommended, could be related to the cervical pathology. Nerve Conduction Studies ?Stim Site NR Peak (ms) P-T Amp (?V) Site1 Site2 Delta-P (ms) Dist (cm) Loc (m/s) Left Median Anti Sensory (2-3nd Digit) Wrist ? 5.7 3.2 Wrist 2-3nd Digit 5.7 14.0 25 Wrist ? 6.3 9.0 Wrist 2-3nd Digit 5.7 14.0 25 Right Median Anti Sensory (2-3nd Digit) Wrist ? 5.5 1.9 Wrist 2-3nd Digit 5.5 14.0 25 Wrist ? 5.8 8.0 Wrist 2-3nd Digit 5.5 14.0 25 Left Radial Anti Sensory (Base 1st Digit) Wrist ? 2.1 9.3 Wrist Base 1st Digit 2.1 0.0 Right Radial Anti Sensory (Base 1st Digit) Wrist ? 2.6 8.8 Wrist Base 1st Digit 2.6 0.0 Left Ulnar Anti Sensory (5th Digit) Wrist ? 2.2 17.0 Wrist 5th Digit 2.2 14.0 64 Right Ulnar Anti Sensory (5th Digit) Wrist ? 2.6 8.6 Wrist 5th Digit 2.6 14.0 54 ?Stim Site NR Onset (ms) O-P Amp (mV) Site1 Site2 Delta-0 (ms) Dist (cm) Loc (m/s) Left Median Motor (Abd Poll Brev) Wrist ? 5.7 1.6 Elbow Wrist 4.9 29.0 59 Elbow ? 10.6 1.3 Right Median Motor (Abd Poll Brev) Wrist ? 5.8 2.2 Elbow Wrist 5.2 26.0 50 Elbow ? 11.0 1.7 Left Ulnar Motor (Abd Dig Minimi) Wrist ? 2.5 5.6 A Elbow Wrist 5.2 28.0 60 A Elbow ? 7.7 4.4 B Elbow Wrist 3.8 20.0 53 B Elbow ? 6.3 1.7 Right Ulnar Motor (Abd Dig Minimi) Wrist ? 2.7 5.0 A Elbow Wrist 5.3 26.0 49 A Elbow ? 8.0 4.0 B Elbow Wrist 3.6 17.0 47 B Elbow ? 6.3 3.7 F Wave Studies ?NR F-Lat (ms) L-R F-Lat (ms) Left Median (Mrkrs) (Abd Poll Brev) ? 28.67 2.22 Right Median (Mrkrs) (Abd Poll Brev) ? 30.90 2.22 Left Ulnar (Mrkrs) (Abd Dig Min) ? 27.97 0.19 Right Ulnar (Mrkrs) (Abd Dig Min) ? 27.78 0.19 Electromyography ?Side Muscle Nerve Root Ins Act Fibs Amp Dur Recrt Comment Left 1stDorInt Ulnar C8-T1 Nml Nml Decr >12ms +1 Left ABD Dig Min Ulnar C8-T1 Nml Nml Nml >12ms +1 Left Abd Poll Brev Median C8-T1 Nml Nml Decr >12ms +1 Right Abd Poll Long Radial (Post Int) C7-8 Nml Nml Nml Nml Nml Left Abd Poll Long Radial (Post Int) C7-8 Nml Nml Decr >12ms +1 Left Biceps Musculocut C5-6 Nml Nml Nml Nml Nml Left BrachioRad Radial C5-6 Nml Nml Nml Nml Nml Left Deltoid Axillary C5-6 Nml Nml Nml Nml Nml Left Ext Digitorum Radial (Post Int) C7-8 Nml Nml Nml Nml Nml Left Ext Indicis Radial (Post Int) C7-8 Nml Nml Nml Nml Nml Left FlexPolLong Median (Ant Int) C7-8 Nml Nml Nml Nml Nml Left PronatorTeres Median C6-7 Nml Nml Nml Nml Nml Left Triceps Radial C6-7-8 Nml Nml Nml Nml Nml Right 1stDorInt Ulnar C8-T1 Nml Nml Decr >12ms +1 Right ABD Dig Min Ulnar C8-T1 Nml Nml Decr >12ms +1 Right Abd Poll Brev Median C8-T1 Nml Nml Decr >12ms +1 Right Biceps Musculocut C5-6 Nml Nml Nml Nml Nml Right BrachioRad Radial C5-6 Nml Nml Nml Nml Nml Right Deltoid Axillary C5-6 Nml Nml Nml >12ms +1 Right Ext Digitorum Radial (Post Int) C7-8 Nml Nml Nml Nml Nml Right Ext Indicis Radial (Post Int) C7-8 Nml Nml Nml Nml Nml Right FlexPolLong Median (Ant Int) C7-8 Nml Nml Nml Nml Nml Right PronatorTeres Median C6-7 Nml Nml Nml Nml Nml Right Triceps Radial C6-7-8 Nml Nml Nml Nml Nml
--- OUTSIDE RECORDS SUMMARY | 2025-02-13 09:02 | XMS_ITS | Clinical Summary ---
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
== END 2025-02-13 08:47 | disposition home or self-care (01) ==
PROVIDERS: PCP Family Medicine; Visit Provider Orthopaedic Surgery
DX: G56.03 Carpal tunnel syndrome, bilateral upper limbs (principal); G56.23 Lesion of ulnar nerve, bilateral upper limbs
CPT/HCPCS: 95886; 95911

== ENCOUNTER 2025-02-18 08:50 | Outpatient (CLI) | payer MEDICARE, SELFPAY ==
--- NOTE | ~2025-02-18 | DEXA_ITS ---
Bone Density Report Name: MURALI MAYFIELD Age: 85 Sex: Female Ethnicity: White Date of : 1940 Indication: postmenopausal; screening for osteoporosis; parental hip fracture; height loss; prior fracture; Referring Provider: JENNIFER MOSLEY Study: Bone densitometry was performed. Exam Date: February 18, 2025 Accession number: [id number] Bone Density: Region BMD T-score Z-score Classification AP Spine(L1-L4) 1.085 0.3 3.1 Normal Femoral Neck (Right) 0.781 -0.6 1.8 Normal Total Hip (Right) 0.952 0.1 2.3 Normal World Health Organization criteria for BMD impression classify patients as: Normal (T-score at or above -1.0), Osteopenia (T-score between -1.0 and -2.5), or Osteoporosis (T-score at or below -2.5). 10-year Fracture Risk: FRAX not reported because: All T-scores for Spine Total, Hip Total, Femoral Neck at or above -1.0 Prior hip or vertebral fracture Previous Exams: Region Exam Age BMD T-score BMD Change BMD Change Date g/cm2 vs Baseline vs Previous Total Hip(Right) 02/18/2025 85 0.952 0.1 0.102 (12.0%)# 0.102 (12.0%)# 10/02/2021 81 0.850 -0.8 *Denotes significance at 95% confidence level, LSC for Total Hip = 0.027 g/cm2 # Denotes dissimilar scan types or analysis methods Clinical Information Provided by Patient: Have had a previous hip or vertebral fracture Has had a low trauma fracture Parent has had a hip fracture Has used the following medications: Vitamin D, Calcium Patient maximum height was 62.5 Menopause Age: 52 Drinks caffeinated beverages Onset of menses at age 12 Number of children 2 Impression: The patient has normal bone mass. The patient has risk factors, including: parental hip fracture, previous fracture. No significant bone loss was observed. Discussion: INCREASED RISK OF FRACTURE DUE TO HISTORY OF FRACTURE. The patient's previous fracture puts the patient at high risk of a future fracture. In untreated patients, the risk of osteoporotic fracture increases approximately two-fold for each 1.0 SD decrease in T-score. Low bone density is not the only risk factor for fracture; also consider factors such as patient's age, frailty or poor health, risk of falling, risk of injury, previous osteoporotic fracture, family history of osteoporosis, cigarette smoking, low body weight, etc. Not everyone with a low trauma fracture has osteoporosis; osteomalacia and other metabolic bone disorders should also be considered. Patients who have osteoporosis should be evaluated for specific diseases and conditions (secondary causes) that may cause or contribute to bone loss and fracture risk. National Osteoporosis Foundation (NOF) recommends pharmacologic intervention for patients with a prior hip or vertebral fracture regardless of BMD T-score. The patient should follow a healthful lifestyle (good nutrition with adequate calcium and vitamin D, and appropriate weight-bearing exercise). Follow-Up: Consider a repeat BMD and Vertebral Fracture Assessment (VFA) exam in 2 years or sooner if medically necessary, to reassess this patient's status. Reported by: KYLE on 02/18/2025 9:32:00 AM. Reviewed, dictated and finalized at location A.
--- OUTSIDE RECORDS SUMMARY | 2025-02-18 09:19 | XMS_ITS | Clinical Summary ---
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
== END 2025-02-18 08:51 | disposition home or self-care (01) ==
LOC: ANHFOHIMG 08:51
PROVIDERS: PCP Family Medicine; Visit Provider Physician Assistant
DX: Z78.0 Asymptomatic menopausal state (principal)
CPT/HCPCS: 77080

== ENCOUNTER 2025-03-01 09:30 | Outpatient (CLI) | payer MEDICARE, SELFPAY ==
--- NOTE | 2025-03-01 09:30 | ECG_ITS ---
Test Date: 2025-03-01 09:41:42 Measurements Intervals [place] Rate: 60 P: 42 HI: 212 QRS: 2 QRSD: 145 T: -14 QT: 423 QTc: 425 Interpretive Statements SINUS RHYTHM WITH FIRST DEGREE AV BLOCK RIGHT BUNDLE BRANCH BLOCK BORDERLINE ST-T WAVE ABNORMALITY- ANTEROLAT/INF LEADS BASELINE ARTIFACT- I, II, III, AVR, AVL, AVF ABNORMAL ECG No previous ECG available for comparison Electronically Signed On 03-01-2025 10:10:45 CDT by Aidan Duran D.O.
--- OUTSIDE RECORDS SUMMARY | 2025-03-01 10:03 | XMS_ITS | Clinical Summary ---
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
== END 2025-03-01 09:31 | disposition home or self-care (01) ==
LOC: ANHSURGERY 09:33
PROVIDERS: PCP Physician Assistant; Visit Provider Orthopaedic Surgery
DX: R94.31 Abnormal electrocardiogram [ECG] [EKG] (principal); I10 Essential (primary) hypertension
CPT/HCPCS: 93005

== ENCOUNTER 2025-03-07 00:29 | Day surgery (SDC) | payer MEDICARE, SELFPAY ==
[2025-02-28 09:28] VITALS: BMI 36.2
--- NOTE | 2025-02-28 09:46 | PC.NURSE ---
[facility] has started construction of its new state of the art ER which will open Spring 2026. With this, we anticipate parking may be a challenge for some our surgical patients and families. Parking spaces are limited but are available for all Surgical, obstetrics, and ER patients sharing this lot. If you arrive and find you are having a hard time finding a parking space, please note that we understand the challenges, please drive around the hospital and park near Hospital Entrance 1. When you enter this entrance, you can ask a volunteer to direct or take you back to the surgical waiting area to check in. We appreciate everyone?s understanding of these expected challenges while we build for your future. Report to the Outpatient Waiting Room, entrance under the green pavilion located off [address], at time __10:00AM___ on date ___03/07/25__. Planned Procedure Time: __12:00PM____.? Time changes happen often and if your time is changed the preop area will call you the afternoon before. - You and your visitor will be asked to self-screen and do not enter if you have any COVID symptoms. Please call surgeon if you need to reschedule. - A mask is optional within the hospital at this time. Patients may have clear liquids (water, carbonated beverages, clear teas, apple juice) until 3 hours prior to surgery (9:00AM) with a maximum of 20 ounces. - No food from midnight until time of surgery and no smoking, or chewing tobacco (or any form of nicotine). No chewing gum, candy or mints. Take only the following medications with a SIP of water on the morning of surgery: __AMLODIPINE, LEVOTHYROXINE, METOPROLOL DO NOT STOP ANY OF YOUR OTHER PRESCRIPTION MEDICATIONS PRIOR TO SURGERY EXCEPT THE FOLLOWING Hold all vitamins and supplements for 3 days per anesthesiologist. LAST DOSE 03/03/25 Medications to discontinue per physician ___HOLD IBUPROFEN(ALL NSAIDS) 7 DAYS PRE-OP PER DR SNYDER Date to take last dose 02/27/25 NO HOLD ON ASPIRIN PER DR SNYDER (PER PATIENT) Please no make-up, nail peruvian, hairspray, perfume, deodorant, or body powder the day of surgery.? No jewelry (including any body piercings) or valuables the day of surgery, leave them at home.? Please take a shower or bath the night before, or the morning of, surgery with an antibacterial soap.? Wear comfortable, loose fitting clothing.? - Jewelry must be removed prior to entering the operating room.? Rings and piercings that are not removed may be cut off. - The hospital will not accept responsibility for valuables.? - Please leave all valuables, including medications, at home the day of surgery. If you are going home after surgery, a licensed sales warehouse driver must drive you home.? - NO public transportation without another adult if you receive anesthesia. - We recommend that an adult stay with you for 24 hours following discharge. - We also recommend that you do not drive, make important decision, drink alcoholic beverages, or take any drugs that were not prescribed by your health care provider for at least 24 hours after your discharge time. Follow any additional instructions given to you from your surgeon. Telephone instructions given to ____PATIENT and asked if any additional questions and then verbalized understanding. Patient advised to call surgeon office or pre surgery nurse liaison [phone] if any additional questions.
--- NOTE | 2025-03-05 12:57 | PM.IMHP ---
H&P: HPI History of Present Illness Date/Time: 03/05/25 12:57 Chief Complaint: Left carpal tunnel syndrome Narrative: 85-year-old female presents today for a left carpal tunnel release. She has been having symptoms years. At this time she has a constant sense of numbness in the left thumb, index and long finger. She has nocturnal symptoms are very regular basis she has tried bracing at night but this did seem to improve symptoms. She has had a recent EMG nerve conduction velocity test done which showed bilateral carpal tunnel syndrome. At this point patient feels she is to proceed with surgery rather than continue to live with the numbness. Review of Systems Review of Systems: All systems reviewed & are unremarkable except as noted in HPI and below PMFSH Past Medical History Medical History BMI 36.0-36.9,adult NILAM on CPAP Hypothyroidism Degenerative joint disease involving multiple joints Mixed hyperlipidemia Essential hypertension Surgical History Surgical History Status post total left knee replacement (~09/16/22) Status post total right knee replacement (~03/23/22) History of hip replacement (~2012) Family History Family History Mother Hypertension Family history of Alzheimer's disease Father Carcinoma of colon, Onset Age: 75 Family history of cardiovascular disease Social History Social History (Updated 02/25/25 @ 14:05 by Emelia Augustine CMA) Social History: Smoking status: Never smoker Second hand tobacco smoke exposure: Yes Alcohol intake: current Substance use: never Substance use type: does not use Do You Feel Safe in your Home?: Yes Lack of Transportation: No Lack of Food: Never True Current Housing: I Have Housing Concerned About Future Housing: No Difficulty Paying Gas/Electric Bills: No Difficulty Paying for Meds: No Currently Unemployed: No Education: Master's Degree or Higher Difficulty w/ Childcare or Family Care: No Living arrangements: with family Additional living arrangements comments: [place] Occupation/Education: retired Gender identity (if verbalized by the patient): Female Sexual Orientation (if Verbalized by the Patient): Straight or Heterosexual Spiritual care concerns: No Meds Home Medications and Allergies Home Medications ?Medication ?Instructions ?Recorded ?Confirmed ?Type multivitamin (Daily Multi-Vitamin 1 tablet PO DAILY 03/18/21 02/28/25 History tablet) ascorbic acid (vitamin C) 500 mg 500 mg PO DAILY 02/22/22 02/28/25 History tablet (Vitamin C) aspirin 81 mg tablet,delayed 81 mg PO QAM #30 tabs 07/01/22 02/28/25 Rx release omeprazole 20 mg capsule,delayed 20 mg PO QAM 07/01/22 02/28/25 History release calcium 500 mg (as carbonate)-vit 2 tablet PO DAILY 08/25/22 02/28/25 History D3 10 mcg (400 unit) chewable tablet (Calcium 500 + D) levothyroxine 100 mcg tablet See Rx Instructions .Route 11/07/24 02/28/25 Rx .COMPLEX #100 tabs valsartan 160 See Rx Instructions .Route 12/06/24 02/28/25 Rx mg-hydrochlorothiazide 12.5 mg .COMPLEX #30 tabs tablet amlodipine 5 mg tablet See Rx Instructions .Route 12/20/24 02/28/25 Rx .COMPLEX #30 tabs acetaminophen 325 mg tablet 325 mg PO Q6H PRN pain 02/28/25 02/28/25 History (Tylenol) ibuprofen 200 mg tablet (IBU-200) 200 mg PO Q6H PRN pain 02/28/25 02/28/25 History magnesium oxide 400 mg (241.3 mg 400 mg PO EVERY OTHER DAY 02/28/25 02/28/25 History magnesium) tablet metoprolol tartrate 75 mg tablet 75 mg PO BID 02/28/25 02/28/25 History potassium chloride 10 mEq 10 meq PO EVERY OTHER DAY 02/28/25 02/28/25 History capsule,extended release rosuvastatin 5 mg tablet See Rx Instructions .Route 02/28/25 Rx .COMPLEX #90 tabs Allergies Allergy/AdvReac Type Severity Reaction Status Date / Time isosorbide AdvReac Unknown CLAUSTROPHOBIC Verified 02/28/25 09:19 FEELING Exam Narrative: 85-year-old female alert pleasant. She has negative Tinel's over the median nerve in the left wrist. Feelings couple from her pressure in test are both negative. 2+ radial pulse. She has limited flexion the index and finger at the IP joints. Two-point discrimination is greater than 8/greater than 8, greater than 8/6, greater than 8/greater than 8, 6/5, 5/5. Neck range of motion causes no discomfort, negative Spurling's maneuver Resp: Auscultation: clear to auscultation bilaterally Cardio: Rate: regular rate Rhythm: regular rhythm Assessment and Plan Assessment and plan (1) Carpal tunnel syndrome of left wrist: Code(s): G56.02 - Carpal tunnel syndrome, left upper limb Status: Acute Assessment and Plan: 85-year-old female who has carpal tunnel syndrome in her left hand with a significant increase in 2 point. She has a positive EMG study. This point patient would like to proceed with surgery rather than continue nonsurgical treatment. Surgical procedure well as the risks and complications were discussed in detail questions were answered we proceed. Patient will continue her baby aspirin through the time surgery. She will see her primary care doctor for pre-surgical clearance prior
[2025-03-07] VITALS (9 sets, daily range): BP systolic 124–165; BP diastolic 64–79; PULSE 55–959; RESP 13–18; TEMP 36.2–36.4; O2SAT 96–100
--- OUTSIDE RECORDS SUMMARY | 2025-03-07 00:33 | XMS_ITS | Clinical Summary ---
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
[2025-03-07] MEDS: ACETAMINOPHEN 500 MG TABLET 1000 MG PO (10:25)
[2025-03-07] MEDS: LACTATED RINGERS 1,000 ML 30 ML IV CONT (10:30)
[2025-03-07] MEDS: KETOROLAC 15 MG/ML VIAL (*BKC) IV PUSH (10:30)
--- NOTE | 2025-03-07 11:33 | WPDANESEPPF ---
Anes - Initial Pre Proc Eval Procedure: Operation Date: 03/07/25 12:00 Proposed Procedures p Left Carpal Tunnel Release - Marbin Greer MD Date/Time: 03/07/25 11:33 Surgeon: Marbin Greer MD Pre Op Diagnosis: Lt Carpal Tunnel Synd Patient Data Age: 85 Gender: F Height: 1.55 m Weight: 87.2 kg Last Vital Signs Temp 97.5 F L 03/07/25 10:00 Pulse 60 03/07/25 10:00 Resp 18 03/07/25 10:00 BP 165/77 H 03/07/25 10:00 Pulse Ox 96 03/07/25 10:00 O2 Del Method Room Air 03/07/25 10:00 Allergies Allergy/AdvReac Type Severity Reaction Status Date / Time isosorbide AdvReac Unknown CLAUSTROPHOBIC Verified 03/07/25 11:00 FEELING Home Medications ?Medication ?Instructions ?Recorded ?Confirmed ?Type multivitamin (Daily Multi-Vitamin 1 tablet PO DAILY 03/18/21 03/07/25 History tablet) ascorbic acid (vitamin C) 500 mg 500 mg PO DAILY 02/22/22 03/07/25 History tablet (Vitamin C) aspirin 81 mg tablet,delayed 81 mg PO QAM #30 tabs 07/01/22 02/28/25 Rx release omeprazole 20 mg capsule,delayed 20 mg PO QAM 07/01/22 03/07/25 History release calcium 500 mg (as carbonate)-vit 2 tablet PO DAILY 08/25/22 03/07/25 History D3 10 mcg (400 unit) chewable tablet (Calcium 500 + D) levothyroxine 100 mcg tablet See Rx Instructions .Route 11/07/24 03/07/25 Rx .COMPLEX #100 tabs valsartan 160 See Rx Instructions .Route 12/06/24 03/07/25 Rx mg-hydrochlorothiazide 12.5 mg .COMPLEX #30 tabs tablet amlodipine 5 mg tablet See Rx Instructions .Route 12/20/24 03/07/25 Rx .COMPLEX #30 tabs acetaminophen 325 mg tablet 325 mg PO Q6H PRN pain 02/28/25 02/28/25 History (Tylenol) ibuprofen 200 mg tablet (IBU-200) 200 mg PO Q6H PRN pain 02/28/25 02/28/25 History magnesium oxide 400 mg (241.3 mg 400 mg PO EVERY OTHER DAY 02/28/25 03/07/25 History magnesium) tablet metoprolol tartrate 75 mg tablet 75 mg PO BID 02/28/25 03/07/25 History potassium chloride 10 mEq 10 meq PO EVERY OTHER DAY 02/28/25 03/07/25 History capsule,extended release rosuvastatin 5 mg tablet See Rx Instructions .Route 02/28/25 03/07/25 Rx .COMPLEX #90 tabs Patient hx anesthesia problems: none Family hx anesthesia problems: none Results Review: All pre-operative results and documents have been reviewed as part of the pre-operative evaluation. 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 (~03/23/22) History of hip replacement (~2012) Family History Family History Mother Hypertension Family history of Alzheimer's disease Father Carcinoma of colon, Onset Age: 75 Family history of cardiovascular disease Social History Social History (Updated 02/25/25 @ 14:05 by Emelia Augustine CMA) Social History: Smoking status: Never smoker Second hand tobacco smoke exposure: Yes Alcohol intake: current Substance use: never Substance use type: does not use Do You Feel Safe in your Home?: Yes Lack of Transportation: No Lack of Food: Never True Current Housing: I Have Housing Concerned About Future Housing: No Difficulty Paying Gas/Electric Bills: No Difficulty Paying for Meds: No Currently Unemployed: No Education: Master's Degree or Higher Difficulty w/ Childcare or Family Care: No Living arrangements: with family Additional living arrangements comments: [place] Occupation/Education: retired Gender identity (if verbalized by the patient): Female Sexual Orientation (if Verbalized by the Patient): Straight or Heterosexual Spiritual care concerns: No Anes - Eval Final PreProcedure Day of Procedure 03/07/25 11:33 Patient weight: obese Heart: regular rate and rhythm Lungs: clear to auscultation Airway: Mallampati scale class II Neurological: alert and oriented Last oral intake: >/= 8 hours ASA classification: III Emergent: no Anesthetic plan: proceed Anesthesia type and monitoring: general LMA and standard monitoring Results Review: All pre-operative results and documents have been reviewed as part of the pre-operative evaluation. Informed Consent: The patient's anesthetic plan and its attendant risks and benefits were discussed with the patient/family/POA. Questions were solicited and answers provided to the satisfaction of the patient/family/POA.
--- NOTE | 2025-03-07 11:46 | WPDHPUPDATE1 ---
History and Physical Update Update Date/Time: 03/07/25 11:46 History and Physical has been reviewed, including an updated exam of the patient. There are NO changes in the patient's condition. Risks, benefits, and alternatives have been discussed and questions answered. Patient agrees to proceed with procedure.
[2025-03-07] MEDS: ceFAZolin 2 GM in SODIUM CHLORIDE 0.9% IV 50 ML 100 ML IVPB (11:59)
[2025-03-07] MEDS: LIDOCAINE 1% LOCAL INJ 10 ML VIAL INFILTRATE (12:16)
--- NOTE | 2025-03-07 12:57 | P.OP_ITS ---
Procedure Note - Detailed Date of Procedure 03/07/25 Pre-op Diagnosis Lt Carpal Tunnel Synd Post-op Diagnosis Same Procedure Performed Left carpal tunnel release Surgeon Marbin Greer MD Anesthesia General Description of Procedure Patient was brought to the operating room and LM a general anesthesia was admini stered. The left arm was prepped draped usual fashion. She received 2 g of Ancef preoperatively. Was exsanguinated tourniquet elevated to 250 mmHg. A 2 cm longitudinal incision was made close to the base in of the palm in line with the radial border the 4th ray. Dissection was carried down to the superficial palmar fascia through this fascia exposing the transverse carpal ligament. The ligament was released along its ulnar border. Complete release was achieved distally. Proximally a subcutaneous fat was elevated off the distal volar forearm fascia and a [place] elevator passed underneath the fascia from the underlying nerve the fascia was split for a distance of 3 cm proximal to the flexor crease of the wrist completing the decompression. Nerve appeared somewhat flattened under its course under the transverse carpal ligament no masses or other abnormalities noted. Tourniquet was released. Hemostasis was achieved with the few minutes of pressure the wound irrigated and closed with 5 0 nylon suture in the skin. Soft bulky dressing was applied the patient transferred to postop recovery room in stable condition. [facility] Billing Surgery - Charge Forward: Surgery Billing (Left carpal tunnel release)
== END 2025-03-07 14:44 | disposition home or self-care (01) ==
PROVIDERS: PCP Physician Assistant; Visit Provider Orthopaedic Surgery
PROC: (CPT 64721; principal; 2025-03-07 12:00)
DX: G56.02 Carpal tunnel syndrome, left upper limb (principal); I10 Essential (primary) hypertension; E03.9 Hypothyroidism, unspecified; E78.2 Mixed hyperlipidemia; G47.33 Obstructive sleep apnea (adult) (pediatric); M15.0 Primary generalized (osteo)arthritis; E66.9 Obesity, unspecified; Z68.36 Body mass index [BMI] 36.0-36.9, adult; Z79.82 Long term (current) use of aspirin; Z79.1 Long term (current) use of non-steroidal anti-inflammatories (NSAID); Z99.89 Dependence on other enabling machines and devices; Z98.890 Other specified postprocedural states; Z80.0 Family history of malignant neoplasm of digestive organs; Z82.49 Family history of ischemic heart disease and other diseases of the circulatory system
CPT/HCPCS: 64721; J0690; A9270; J1885; J2003; J2405; J2704; J3010; J7120

== ENCOUNTER 2025-03-21 08:13 | Outpatient (CLI) | payer MEDICARE, SELFPAY ==
--- OUTSIDE RECORDS SUMMARY | 2025-03-21 17:05 | XMS_ITS | Clinical Summary ---
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
[2025-03-21 19:53] LABS: Anion Gap 7 mmol/L (4-12); Blood Urea Nitrogen 13 mg/dL (7-17); Calcium 9.4 mg/dL (8.4-10.2); Carbon Dioxide 30 mmol/L (22-30); Chloride 99 mmol/L (98-107); Estimated Glomerular Filt Rate > 60; Glucose 77 mg/dL (65-110); Potassium 4.1 mmol/L (3.4-5.0); Sodium 136 mmol/L (137-145)
== END 2025-03-21 08:14 | disposition home or self-care (01) ==
PROVIDERS: PCP Physician Assistant; Visit Provider Anesthesiology
DX: Z01.818 Encounter for other preprocedural examination (principal); Z51.81 Encounter for therapeutic drug level monitoring
CPT/HCPCS: 36415; 80048

== ENCOUNTER 2025-03-26 00:30 | Day surgery (SDC) | payer MEDICARE, SELFPAY ==
[2025-03-20 14:46] VITALS: BMI 36.2
--- NOTE | 2025-03-20 15:02 | PC.NURSE ---
[facility] has started construction of its new state of the art ER which will open Spring 2026. With this, we anticipate parking may be a challenge for some our surgical patients and families. Parking spaces are limited but are available for all Surgical, obstetrics, and ER patients sharing this lot. If you arrive and find you are having a hard time finding a parking space, please note that we understand the challenges, please drive around the hospital and park near Hospital Entrance 1. When you enter this entrance, you can ask a volunteer to direct or take you back to the surgical waiting area to check in. We appreciate everyone?s understanding of these expected challenges while we build for your future. Report to the Outpatient Waiting Room, entrance under the green pavilion located off [address], at time __6:30AM___ on date __03/26/25___. Planned Procedure Time: __8:30AM____.? Time changes happen often and if your time is changed the preop area will call you the afternoon before. - You and your visitor will be asked to self-screen and do not enter if you have any COVID symptoms. Please call surgeon if you need to reschedule. - A mask is optional within the hospital at this time. Patients may have clear liquids (water, carbonated beverages, clear teas, apple juice) until 3 hours prior to surgery (5:30AM) with a maximum of 20 ounces. - No food from midnight until time of surgery and no smoking, or chewing tobacco (or any form of nicotine). No chewing gum, candy or mints. Take only the following medications with a SIP of water on the morning of surgery: ___AMLODIPINE, LEVOTHYROXINE, METOPROLOL DO NOT STOP ANY OF YOUR OTHER PRESCRIPTION MEDICATIONS PRIOR TO SURGERY EXCEPT THE FOLLOWING Hold all vitamins and supplements for 3 days per anesthesiologist. LAST DOSE 03/22/25 Medications to discontinue per physician ___HOLD IBUPROFEN (ALL NSAIDS) 7 DAYS PRE-OP PER DR SNYDER Date to take last dose 03/18/25 CONTINUE ASPIRIN [address] SNYDER/PER PATIENT. Please no make-up, nail divehi, hairspray, perfume, deodorant, or body powder the day of surgery.? No jewelry (including any body piercings) or valuables the day of surgery, leave them at home.? Please take a shower or bath the night before, or the morning of, surgery with an antibacterial soap.? Wear comfortable, loose fitting clothing.? - Jewelry must be removed prior to entering the operating room.? Rings and piercings that are not removed may be cut off. - The hospital will not accept responsibility for valuables.? - Please leave all valuables, including medications, at home the day of surgery. If you are going home after surgery, a licensed driver courier must drive you home.? - NO public transportation without another adult if you receive anesthesia. - We recommend that an adult stay with you for 24 hours following discharge. - We also recommend that you do not drive, make important decision, drink alcoholic beverages, or take any drugs that were not prescribed by your health care provider for at least 24 hours after your discharge time. Follow any additional instructions given to you from your surgeon. Telephone instructions given to ____PATIENT and asked if any additional questions and then verbalized understanding. Patient advised to call surgeon office or pre surgery nurse liaison [phone] if any additional questions.
--- NOTE | 2025-03-25 12:37 | PM.IMHP ---
H&P: [facility] History of Present Illness Date/Time: 03/25/25 12:37 Chief Complaint: Right carpal tunnel syndrome Narrative: HPI: 85-year-old female presents today for right carpal tunnel release. She underwent left carpal tunnel release approximately 3 weeks ago. She had good results following surgery. She has noticed improvement and her overall sensation. She is still having the significance in the right hand. She is having nocturnal symptoms and occasional numbness through the day. She had a recent EMG study which did show bilateral carpal tunnel syndrome. Patient feels that she has recovered well from the left carpal tunnel release and is ready proceed with the right. Review of Systems Review of Systems: All systems reviewed & are unremarkable except as noted in HPI and below PMFSH Past Medical History Medical History BMI 36.0-36.9,adult NILAM on CPAP Hypothyroidism Degenerative joint disease involving multiple joints Mixed hyperlipidemia Essential hypertension Surgical History Surgical History Status post total left knee replacement (~09/16/22) Status post total right knee replacement (~03/23/22) History of hip replacement (~2012) Family History Family History Mother Hypertension Family history of Alzheimer's disease Father Carcinoma of colon, Onset Age: 75 Family history of cardiovascular disease Social History Social History Social History: Second hand tobacco smoke exposure: Yes Alcohol intake: current Substance use: never Substance use type: does not use Do You Feel Safe in your Home?: Yes Lack of Transportation: No Lack of Food: Never True Current Housing: I Have Housing Concerned About Future Housing: No Difficulty Paying Gas/Electric Bills: No Difficulty Paying for Meds: No Currently Unemployed: No Education: Master's Degree or Higher Difficulty w/ Childcare or Family Care: No Living arrangements: with family Additional living arrangements comments: [place] Occupation/Education: retired Gender identity (if verbalized by the patient): Female Sexual Orientation (if Verbalized by the Patient): Straight or Heterosexual Spiritual care concerns: No Meds Home Medications and Allergies Home Medications ?Medication ?Instructions ?Recorded ?Confirmed ?Type multivitamin (Daily Multi-Vitamin 1 tablet PO DAILY 03/18/21 03/20/25 History tablet) ascorbic acid (vitamin C) 500 mg 500 mg PO DAILY 02/22/22 03/20/25 History tablet (Vitamin C) aspirin 81 mg tablet,delayed 81 mg PO QAM #30 tabs 07/01/22 03/20/25 Rx release omeprazole 20 mg capsule,delayed 20 mg PO QAM 07/01/22 03/20/25 History release calcium 500 mg (as carbonate)-vit 2 tablet PO DAILY 08/25/22 03/20/25 History D3 10 mcg (400 unit) chewable tablet (Calcium 500 + D) levothyroxine 100 mcg tablet See Rx Instructions .Route 11/07/24 03/20/25 Rx .COMPLEX #100 tabs valsartan 160 See Rx Instructions .Route 12/06/24 03/20/25 Rx mg-hydrochlorothiazide 12.5 mg .COMPLEX #30 tabs tablet amlodipine 5 mg tablet See Rx Instructions .Route 12/20/24 03/20/25 Rx .COMPLEX #30 tabs acetaminophen 325 mg tablet 650 mg PO Q6H PRN pain 02/28/25 03/20/25 History (Tylenol) ibuprofen 200 mg tablet (IBU-200) 200 mg PO Q6H PRN pain 02/28/25 03/20/25 History magnesium oxide 400 mg (241.3 mg 400 mg PO EVERY OTHER DAY 02/28/25 03/20/25 History magnesium) tablet metoprolol tartrate 75 mg tablet 75 mg PO BID 02/28/25 03/20/25 History potassium chloride 10 mEq 10 meq PO EVERY OTHER DAY 02/28/25 03/20/25 History capsule,extended release rosuvastatin 5 mg tablet See Rx Instructions .Route 02/28/25 03/20/25 Rx .COMPLEX #90 tabs sennosides 8.6 mg-docusate sodium 2 tab-cap (2 x 8.6-50 mg) PO BID 03/07/25 03/20/25 Rx 50 mg capsule (Senna Plus) PRN constipation #100 caps Allergies Allergy/AdvReac Type Severity Reaction Status Date / Time isosorbide AdvReac Unknown CLAUSTROPHOBIC Verified 03/20/25 14:39 FEELING Exam Narrative: 85-year-old female very alert pleasant. She has normal intrinsic strength to the right hand. She has normal light touch sensation to the right hand. Full range of motion of the wrist and fingers. 2+ radial pulse. No swelling noted. Resp: Auscultation: clear to auscultation bilaterally Cardio: Rate: regular rate Rhythm: regular rhythm Assessment and Plan Assessment and plan (1) Carpal tunnel syndrome: Code(s): G56.00 - Carpal tunnel syndrome, unspecified upper limb Status: Acute Plan 85-year-old female who has right carpal tunnel syndrome. She has continued symptoms at night as well as during the day. She has had a positive EMG study to correlate to the carpal tunnel syndrome. Patient did well with her left carpal tunnel release would like proceed with the right. Surgical procedure as well as the risks and complications were reviewed. Patient will avoid any aspirin or ibuprofen products 1 week prior to surgery.
--- OUTSIDE RECORDS SUMMARY | 2025-03-26 00:32 | XMS_ITS | Clinical Summary ---
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
[2025-03-26 07:00] VITALS: BP 152/72; PULSE 56; RESP 16; TEMP 36.4; O2SAT 95
[2025-03-26] MEDS: KETOROLAC 15 MG/ML VIAL (*BKC) IV PUSH (07:00)
[2025-03-26] MEDS: ACETAMINOPHEN 500 MG TABLET 1000 MG PO (07:00)
[2025-03-26] MEDS: LACTATED RINGERS 1,000 ML 30 ML IV CONT (07:00)
--- NOTE | 2025-03-26 07:12 | WPDHPUPDATE1 ---
History and Physical Update Update Date/Time: 03/26/25 07:12 History and Physical has been reviewed, including an updated exam of the patient. There are NO changes in the patient's condition. Risks, benefits, and alternatives have been discussed and questions answered. Patient agrees to proceed with procedure.
--- NOTE | 2025-03-26 08:03 | WPDANESEPPF ---
Anes - Initial Pre Proc Eval Procedure: Operation Date: 03/26/25 08:30 Proposed Procedures p Right Carpal Tunnel Release - Marbin Greer MD Date/Time: 03/26/25 08:03 Surgeon: Marbin Greer MD Pre Op Diagnosis: right carpal tunnel syndrome Patient Data Age: 85 Gender: F Height: 1.55 m Weight: 87.4 kg Last Vital Signs Temp 36.4 C L 03/26/25 07:00 Pulse 56 L 03/26/25 07:00 Resp 16 03/26/25 07:00 BP 152/72 H 03/26/25 07:00 Pulse Ox 95 03/26/25 07:00 O2 Del Method Room Air 03/26/25 07:00 Allergies Allergy/AdvReac Type Severity Reaction Status Date / Time isosorbide AdvReac Unknown CLAUSTROPHOBIC Verified 03/26/25 07:12 FEELING Home Medications ?Medication ?Instructions ?Recorded ?Confirmed ?Type multivitamin (Daily Multi-Vitamin 1 tablet PO DAILY 03/18/21 03/20/25 History tablet) ascorbic acid (vitamin C) 500 mg 500 mg PO DAILY 02/22/22 03/20/25 History tablet (Vitamin C) aspirin 81 mg tablet,delayed 81 mg PO QAM #30 tabs 07/01/22 03/20/25 Rx release omeprazole 20 mg capsule,delayed 20 mg PO QAM 07/01/22 03/20/25 History release calcium 500 mg (as carbonate)-vit 2 tablet PO DAILY 08/25/22 03/20/25 History D3 10 mcg (400 unit) chewable tablet (Calcium 500 + D) levothyroxine 100 mcg tablet See Rx Instructions .Route 11/07/24 03/26/25 Rx .COMPLEX #100 tabs valsartan 160 See Rx Instructions .Route 12/06/24 03/20/25 Rx mg-hydrochlorothiazide 12.5 mg .COMPLEX #30 tabs tablet amlodipine 5 mg tablet See Rx Instructions .Route 12/20/24 03/26/25 Rx .COMPLEX #30 tabs acetaminophen 325 mg tablet 650 mg PO Q6H PRN pain 02/28/25 03/20/25 History (Tylenol) ibuprofen 200 mg tablet (IBU-200) 200 mg PO Q6H PRN pain 02/28/25 03/20/25 History magnesium oxide 400 mg (241.3 mg 400 mg PO EVERY OTHER DAY 02/28/25 03/20/25 History magnesium) tablet metoprolol tartrate 75 mg tablet 75 mg PO BID 02/28/25 03/26/25 History potassium chloride 10 mEq 10 meq PO EVERY OTHER DAY 02/28/25 03/20/25 History capsule,extended release rosuvastatin 5 mg tablet See Rx Instructions .Route 02/28/25 03/20/25 Rx .COMPLEX #90 tabs sennosides 8.6 mg-docusate sodium 2 tab-cap (2 x 8.6-50 mg) PO BID 03/07/25 03/20/25 Rx 50 mg capsule (Senna Plus) PRN constipation #100 caps Patient hx anesthesia problems: none Family hx anesthesia problems: none Results Review: All pre-operative results and documents have been reviewed as part of the pre-operative evaluation. [facility] Past Medical History Medical History BMI 36.0-36.9,adult NILAM on CPAP Hypothyroidism Degenerative joint disease involving multiple joints Mixed hyperlipidemia Essential hypertension Surgical History Surgical History Status post total left knee replacement (~09/16/22) Status post total right knee replacement (~03/23/22) History of hip replacement (~2012) Family History Family History Mother Hypertension Family history of Alzheimer's disease Father Carcinoma of colon, Onset Age: 75 Family history of cardiovascular disease Social History Social History Social History: Smoking status: Never smoker Second hand tobacco smoke exposure: Yes Alcohol intake: current Substance use: never Substance use type: does not use Do You Feel Safe in your Home?: Yes Lack of Transportation: No Lack of Food: Never True Current Housing: I Have Housing Concerned About Future Housing: No Difficulty Paying Gas/Electric Bills: No Difficulty Paying for Meds: No Currently Unemployed: No Education: Master's Degree or Higher Difficulty w/ Childcare or Family Care: No Living arrangements: with family Additional living arrangements comments: [place] Occupation/Education: retired Gender identity (if verbalized by the patient): Female Sexual Orientation (if Verbalized by the Patient): Straight or Heterosexual Spiritual care concerns: No Anes - Eval Final PreProcedure Day of Procedure 03/26/25 08:03 Patient weight: obese Heart: regular rate and rhythm Lungs: clear to auscultation Airway: Mallampati scale class II and class III Neurological: alert and oriented Last oral intake: >/= 8 hours ASA classification: III Emergent: no Anesthetic plan: proceed Anesthesia type and monitoring: general GIVS and standard monitoring Results Review: All pre-operative results and documents have been reviewed as part of the pre-operative evaluation. Informed Consent: The patient's anesthetic plan and its attendant risks and benefits were discussed with the patient/family/POA. Questions were solicited and answers provided to the satisfaction of the patient/family/POA.
[2025-03-26] MEDS: ceFAZolin 2 GM in SODIUM CHLORIDE 0.9% IV 50 ML 100 ML IVPB (08:32)
[2025-03-26] MEDS: LIDOCAINE 1% LOCAL INJ 10 ML VIAL INFILTRATE (08:53)
[2025-03-26 09:06] VITALS: BP 120/55; PULSE 57; RESP 14; O2SAT 94
--- NOTE | 2025-03-26 09:21 | P.OP_ITS ---
Procedure Note - Detailed Date of Procedure 03/26/25 Pre-op Diagnosis right carpal tunnel syndrome Post-op Diagnosis Same Procedure Performed Right carpal tunnel release Surgeon Marbin Greer MD Gymnastic Teacher [facility] Anesthesia General Description of Procedure Patient was brought to the operating room and a light IV general anesthetic administered and the right arm prepped draped usual fashion. She received 2 g of Ancef preoperatively. Local anesthetic with 3 cc 1% plain lidocaine was injected into the surgical site. The limb was exsanguinated and tourniquet elevated to 250 mmHg. A 2 cm longitudinal incision was made the base of the palm in line with the radial border the 4th ray dissection was carried down through the superficial palmar fascia just ulnar to the palmaris longus exposing the transverse carpal ligament which was longitudinally incised along its ulnar border. Complete release was achieved distally. Proximally the subcutaneous fat was elevated off the distal volar form fascia and a [employer] elevator passed underneath the fascia from the underlying nerve the fascia was split for a distance of 3 cm proximal to the flexion crease of the wrist completed the decompression. The nerve was visualized and there was more than average bland appearing hypertrophic synovium and there was a large [place] synovial effusion that drained out of the carpal tunnel on incision of the transverse carpal ligament. No other abnormalities. Tourniquet was released hemostasis was achieved wound irrigated and closed with 5 0 nylon sutures soft bulky dressing applied the patient transferred to postop recovery room in stable condition. No known complications. [facility] Billing Surgery - Charge Forward: Surgery Billing (Right carpal tunnel release)
[2025-03-26 09:30] VITALS: BP 127/63; PULSE 57; RESP 14
[2025-03-26 10:00] VITALS: BP 145/66; PULSE 52; RESP 20
[2025-03-26 10:10] VITALS: BP 142/61; PULSE 54; RESP 20
== END 2025-03-26 10:13 | disposition home or self-care (01) ==
PROVIDERS: PCP Physician Assistant; Visit Provider Orthopaedic Surgery
PROC: (CPT 64721; principal; 2025-03-26 08:30)
DX: G56.01 Carpal tunnel syndrome, right upper limb (principal); E66.9 Obesity, unspecified; Z68.36 Body mass index [BMI] 36.0-36.9, adult
CPT/HCPCS: 64721; J0690; A9270; J1885; J2003; J2704; J3010; J7120

== ENCOUNTER 2025-03-26 12:21 | Outpatient (CLI) | payer MEDICARE, SELFPAY ==
--- OUTSIDE RECORDS SUMMARY | 2025-03-26 12:24 | XMS_ITS | Clinical Summary ---
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
[2025-03-26 18:57] LABS: CRP 1.6 mg/dL (<1.0)
[2025-03-27 13:09] LABS: Anti-CCP Ab, IgG/IgA 10 units (0-19)
[2025-03-27 14:09] LABS: ANA by IFA Rfx Titer/Pattern Negative (.)
== END 2025-03-26 12:22 | disposition home or self-care (01) ==
LOC: ANHLAB 12:23 → ANHBWCLAB 12:27
PROVIDERS: PCP Physician Assistant; Visit Provider Orthopaedic Surgery
DX: G56.00 Carpal tunnel syndrome, unspecified upper limb (principal)
CPT/HCPCS: 36415; 85652; 86038; 86140; 86200; 86431